=== PATIENT | female | born 1955 | race Caucasian/White ===

== ENCOUNTER 2020-05-07 17:15 | Outpatient (CLI) | payer OTHER, BC, SELFPAY ==
--- NOTE | ~2020-05-07 | XR_ITS ---
EXAMINATION: XR ankle RT min 3V, XR foot RT min 3V EXAM DATE: 05/07/2020 17:46 INDICATION: Initial encounter following injury, with pain of the right ankle, foot. TECHNIQUE: Right foot dorsoplantar, lateral and oblique projections obtained and reviewed. Right ank le frontal, lateral and oblique projections obtained and reviewed. There is no prior study for janice tran. FINDINGS: Right metatarsal bones unremarkable. The right ankle mortise appears intact. There are n o acute fractures or dislocations identified. There is no subcutaneous gas. The soft tissue is unre markable. There are no radiopaque foreign bodies. There is an old talar dorsal avulsion injury, gi jose g this appears well-corticated and rounded. IMPRESSION: No acute osseous findings. Reviewed, dictated and finalized at location B. IMPRESSION: No acute osseous findings. IMPRESSION: No acute osseous findings.
== END 2020-05-07 17:16 | disposition home or self-care (01) ==
PROVIDERS: PCP Family Medicine
DX: M25.571 Pain in right ankle and joints of right foot (principal); M25.471 Effusion, right ankle; W10.9XXA Fall (on) (from) unspecified stairs and steps, initial encounter
CPT/HCPCS: 73610; 73630

== ENCOUNTER 2021-07-19 10:38 | Emergency (ER) | payer OTHER, BC, SELFPAY ==
[2021-07-19 10:48] VITALS: BP 93/66; PULSE 86; RESP 16; TEMP 36.5; O2SAT 97
--- NOTE | 2021-07-19 11:18 | ED.EAR ---
HPI - Ear Problem General Chief complaint: Ear Stated complaint: ear pain Source: patient and RN notes reviewed Limitations: no limitations History of Present Illness HPI Narrative: The patient, a non-smoker/nondrinker on diabetic meds, presents with right ear discomfort. Patient states she has 1 to 2-day worsening of a least 2-week history of right ear discomfort that is mild, worse with some leaning position changes. This is associated with muffled hearing, bubbling in her ear; she has allergy triggers at home- with pets in bedroom [no smoker]. No fever, URI?sinusitis, vertigo, tooth ache [she's had wisdom tooth extraction ], lancinating/neuralgic pain, teeth grinding; no loss of taste/smell, CP, cough, S OB. Discussed possible causes [allergy, infection, dental/bruxism, etc.] -will treat broadly. She has been seen by ENT in the past for nasal sinus surgery; advised to see them in follow-up. Related Data Allergies Allergy/AdvReac Type Severity Reaction Status Date / Time No Known Allergies Allergy Unverified 01/04/21 15:26 Review of Systems Review of Systems: General/Constitutional: No weight loss,fever Eyes: N0: Redness,discharge Ears/Nose/Throat: No: Epistaxis,ear discharge Respiratory: Denies: Hemoptysis Gastrointestinal: No Vomiting, Bleeding-rectal Skin: No Lumps, eruption Neurologic: No Focal Weakness,Sz Hematologic: Denies: Petechiae/Purpura Psychiatric: No: Suicida ideationl All Other Systems: Reviewed and Negative [facility] Past Medical History Medical History Allergic asthma Asthma Hyperglycemia Family History Family History Father Cerebrovascular accident, Onset Age: 77 Mother Family history of congestive heart failure, Onset Age: 69 Hypertension Family history of cardiovascular disease, Onset Age: 70 Family history of arthritis Other Acute myocardial infarction Carcinoma of colon Diabetes mellitus Family history of alcoholism Family history of chronic obstructive pulmonary disease Family history of glaucoma Family history of seizure disorder Social History Social History Social History: Smoking status: Never smoker Second hand tobacco smoke exposure: No Alcohol intake: never Substance use: never Substance use type: does not use Gender identity (if verbalized by the patient): Female Sexual Orientation (if Verbalized by the Patient): Straight or Heterosexual Comments At time of signature, agree with nursing past medical, surgical, social and family history. There is no relevant family history pertinent to the presenting complaint Exam Narrative: General Appearance: Well appearing, Well nourished, No distress EYE: PERRLA , EOMI Ears: TMs benign, nontender external ear normal, Auditory canal normal Nose: Normal nose, Nares clear Mouth/Throat: Normal appearing, Normal lips, nontender TMJ Neck: Supple, No adenopathy Respiratory: Airway patent, No respiratory distress Skin: Warm, Dry Neurological: A&O x3, CN II-X intact Psychiatric: Normal mood, Normal affect Course Vital Signs Vital signs: Vital Signs Temperature 97.7 F 07/19/21 10:48 Pulse Rate 86 07/19/21 10:48 Respiratory Rate 16 07/19/21 10:48 Blood Pressure 93/66 L 07/19/21 10:48 Pulse Oximetry 97 07/19/21 10:48 Temperature 97.7 F 07/19/21 10:48 Pulse Rate 86 07/19/21 10:48 Respiratory Rate 16 07/19/21 10:48 Blood Pressure 93/66 L 07/19/21 10:48 Pulse Oximetry 97 07/19/21 10:48 Medical Decision Making Vital Signs Vital Signs: Vital Signs Temperature 97.7 F 07/19/21 10:48 Pulse Rate 86 07/19/21 10:48 Respiratory Rate 16 07/19/21 10:48 Blood Pressure 93/66 L 07/19/21 10:48 Pulse Oximetry 97 07/19/21 10:48 Temperature 97.7 F 07/19/21 10:48 Pul
== END 2021-07-19 11:31 | disposition home or self-care (01) ==
PROVIDERS: Emergency Provider Emergency Medicine; PCP Family Medicine
DX: H92.01 Otalgia, right ear (principal)
CPT/HCPCS: 99213; G0463

== ENCOUNTER 2021-08-30 10:04 | Emergency (ER) | payer OTHER, BC, SELFPAY ==
--- NOTE | 2021-08-30 10:09 | ED.BACK ---
HPI - Back Pain/Injury General Chief Complaint: Back Pain/Injury Stated Complaint: Back pain Time Seen by Provider: 08/30/21 10:18 Source: patient Mode of arrival: ambulatory Limitations: no limitations History of Present Illness HPI Narrative: 66-year-old female presented for complaint of left lower back strain, onset yesterday. She states she was in a glider chair when she went to stand she torqued it. States she was seen by her chiropractor this morning who recommended steroid injection and oral steroid course, recommending she come to the urgent care for these prescriptions. She has taken ibuprofen this morning 0530 and applied pain cream. Currently denies numbness, tingling, weakness or radiating pain to the lower extremities, denies loss of bowel or bladder function. Endorses pain is worse when lowering to sit or raising to stand. 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 Endorses history of sciatica, DM, asthma. Related Data Allergies Allergy/AdvReac Type Severity Reaction Status Date / Time No Known Allergies Allergy Verified 08/29/21 13:00 Review of Systems Review of Systems: CONSTITUTIONAL: Denies body aches, fever, chills, or sweats. EYES: Denies visual changes, redness, or discharge. ENT: Denies rhinorrhea, congestion, sore throat, or otalgia. CARDIOVASCULAR: Denies chest pain, palpitations, or edema. RESPIRATORY: Denies cough or dyspnea. GASTROINTESTINAL: Denies abdominal pain, nausea, vomiting, or diarrhea. GENITOURINARY: Denies dysuria or hematuria. SKIN: Denies rash, itching, or wounds. MUSCULOSKELETAL: Endorses back pain NEUROLOGIC: Denies headache, numbness, tingling, or weakness. PSYCH: Denies depression or anxiety. All systems reviewed & are unremarkable except as noted in HPI and below PMFSH Past Medical History Medical History Allergic asthma Asthma Hyperglycemia Family History Family History Father Cerebrovascular accident, Onset Age: 77 Mother Family history of congestive heart failure, Onset Age: 69 Hypertension Family history of cardiovascular disease, Onset Age: 70 Family history of arthritis Other Acute myocardial infarction Carcinoma of colon Diabetes mellitus Family history of alcoholism Family history of chronic obstructive pulmonary disease Family history of glaucoma Family history of seizure disorder Social History Social History Social History: Smoking status: Never smoker Second hand tobacco smoke exposure: No Alcohol intake: never Substance use: never Substance use type: does not use Gender identity (if verbalized by the patient): Female Sexual Orientation (if Verbalized by the Patient): Straight or Heterosexual Comments At time of signature, I have reviewed and agree with nursing past medical, surgical, social and family history unless otherwise noted. Please see nursing chart for further information. There is no relevant family history pertinent to the presenting complaint Exam Narrative: GENERAL: Well-appearing, well-nourished, and in no acute distress. HEAD: Normocephalic, atraumatic. EYES: EOMI. No redness or drainage. Conjunctivae normal. ENT: Mucous membranes pink and moist. No rhinorrhea. TMs normal bilaterally. Throat normal. Uvula midline. NECK: Normal AROM. Supple. No lymphadenopathy. CHEST: No respiratory distress. Clear to auscultation. HEART: Regular rate and rhythm. No murmur appreciated. Normal peripheral pulses. ABDOMEN: Soft, nontender, nondistended, normal active bowel sounds. MUSCULOSKELETAL: Left low back pain, tender with deep palpation to upper hip, No bony tenderness, Ambulating with steady gait EXTREMITIES: Normal range of motion. No edema. SKIN: Warm, dry, no rash. Capi
[2021-08-30 10:11] VITALS: BP 114/83; PULSE 82; RESP 16; TEMP 36.6; O2SAT 100
[2021-08-30] MEDS: methylPREDNISolone ACETATE 80 MG/ML VIAL IM (10:25)
== END 2021-08-30 10:35 | disposition home or self-care (01) ==
PROVIDERS: Emergency Provider Nurse Practitioner Family; PCP Family Medicine
DX: S39.012A Strain of muscle, fascia and tendon of lower back, initial encounter (principal); X50.9XXA Other and unspecified overexertion or strenuous movements or postures, initial encounter; J45.909 Unspecified asthma, uncomplicated
CPT/HCPCS: 96372; 99213; G0463; J1040

== ENCOUNTER 2021-10-10 07:55 | Outpatient (CLI) | payer OTHER, BC, SELFPAY | END 2021-10-10 07:56 | disposition home or self-care (01) | LOC: ANHAUDIO 07:57 | PROVIDERS: PCP Family Medicine; Visit Provider Otolaryngology | DX: H69.81 Other specified disorders of Eustachian tube, right ear (principal); H91.91 Unspecified hearing loss, right ear | CPT/HCPCS: 92552; 92556; 92567 ==

== ENCOUNTER → 2022-02-15 08:03 | Outpatient (CLI) | payer OTHER, BC, SELFPAY ==
--- NOTE | ~2022-02-15 | XR_ITS ---
EXAM: XR lumbar spine 2-3V, XR pelvis 1-2V DATE: 02/15/2022 08:39 HISTORY: Low back pain with left radicular pain . COMPARISON: 06/29/2018. FINDINGS: 4 nonrib-bearing lumbar-type vertebral bodies, likely secondary to bilateral sacralization of L5. Lumbar scoliosis. Exaggerated lumbar lordosis. Stable minimal concave superior and inferior e ndplate deformities as can be seen with osteoporosis. Decreased mineralization. Pelvic phleboliths. M ultilevel facet sclerosis and hypertrophy. Minimal 1 to 2 mm retrolisthesis of L4 on L5, unchanged. M ild degenerative changes in the SI joints, bilateral hips, and pubic symphysis. 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 Osteop orosis. Multilevel facet arthropathy. Reviewed, dictated and finalized at location K. IMPRESSION: Spinal level numbering anomaly, likely representing bilateral sacra lization of L5. Osteoporosis. Multilevel facet arthropathy.
== END ==
PROVIDERS: PCP Family Medicine
DX: M54.50 Low back pain, unspecified (principal); M54.16 Radiculopathy, lumbar region; M81.0 Age-related osteoporosis without current pathological fracture; M12.88 Other specific arthropathies, not elsewhere classified, other specified site
CPT/HCPCS: 72100; 72170

== ENCOUNTER 2022-03-01 15:42 | Emergency (ER) | payer OTHER, BC, SELFPAY ==
[2022-03-01 15:46] VITALS: BP 120/88; PULSE 102; RESP 16; TEMP 37.6; O2SAT 96
--- NOTE | 2022-03-01 15:55 | ED.URI ---
HPI - URI/Sore Throat General Chief Complaint: Upper Respiratory Infection Stated Complaint: ELEVATED HEART RATE/RUNNY NOSE/SORE THROAT/COUGH Source: patient and RN notes reviewed Mode of arrival: ambulatory Limitations: no limitations History of Present Illness HPI Narrative: 66-year-old female with history of diabetes and asthma presents with concern for headache, nasal congestion, low-grade temperature, cough, COVID exposure. Reports her symptoms started today when she woke up from a nap. Reports her was diagnosed with COVID today. She denies needing to use her albuterol inhaler or nebulizer any more frequently, reports she has not used in the last couple of months. She denies any [id number]-[id number] treatment for her symptoms MD elicited complaint: cough Related Data Home Medications Medication Instructions Recorded Confirmed dulaglutide 0.75 mg/0.5 mL 0.75 mg subcut WEEKLY 10/23/21 03/01/22 subcutaneous pen injector (Trulicity) Allergies Allergy/AdvReac Type Severity Reaction Status Date / Time No Known Allergies Allergy Verified 03/01/22 15:47 Review of Systems Review of Systems: CONSTITUTIONAL: Reports malaise, low-grade fever. EYES: Denies visual changes, redness, or discharge. ENT: Reports rhinorrhea, congestion. Denies sinus pain, otalgia and sore throat. CARDIOVASCULAR: Denies chest pain, palpitations, or edema. RESPIRATORY: Reports cough. Denies dyspnea. GASTROINTESTINAL: Denies abdominal pain, nausea, vomiting, diarrhea SKIN: Denies rash or itching. MUSCULOSKELETAL: Denies myalgia. NEUROLOGIC: Reports headache. All systems reviewed & are unremarkable except as noted in HPI and below PMFSH Past Medical History Medical History Allergic asthma Asthma Hyperglycemia Family History Family History Father Cerebrovascular accident, Onset Age: 77 Mother Family history of congestive heart failure, Onset Age: 69 Hypertension Family history of cardiovascular disease, Onset Age: 70 Family history of arthritis Other Acute myocardial infarction Carcinoma of colon Diabetes mellitus Family history of alcoholism Family history of chronic obstructive pulmonary disease Family history of glaucoma Family history of seizure disorder Social History Social History Social History: Smoking status: Never smoker Second hand tobacco smoke exposure: No Alcohol intake: never Substance use: never Substance use type: does not use Gender identity (if verbalized by the patient): Female Sexual Orientation (if Verbalized by the Patient): Straight or Heterosexual Comments At time of signature, agree with nursing past medical, surgical, social and family history. There is no relevant family history pertinent to the presenting complaint Exam Narrative: GENERAL: Nontoxic appearing and in no acute distress. HEAD: Normocephalic EYES: PERRLA, conjunctivae clear ENT: Nares clear, clear discharge. Mucous membranes moist. TM pearly taylor with dull light reflex bilaterally; no tragal tenderness. Oropharynx not erythematous without lesions. Tonsils not enlarged and without exudate, no drooling, no hoarseness, no trismus, uvula midline. NECK: Supple. No lymphadenopathy CHEST: Clear to auscultation, breath sounds equal. No wheezing, rhonchi, rales, or stridor. No respiratory distress, speaks in full sentences. Barking cough noted HEART: Regular rate and rhythm. No murmur heard. SKIN: Warm, dry, no rash. NEURO: Alert and oriented x3. PSYCH: Normal mood and affect Course Course Emergency Course: Patient expressed some interest in COVID anti-viral, advised her to follow-up with her PCP if her PCR is positive or to follow-up at if she can't reach her PCP Patient is aware of diagnosis, understands and
[2022-03-01 18:32] LABS: SARS-CoV-2 RNA PCR Positive
== END 2022-03-01 16:34 | disposition home or self-care (01) ==
PROVIDERS: Emergency Provider Nurse Practitioner; PCP Family Medicine
DX: U07.1 COVID-19 (principal); J45.909 Unspecified asthma, uncomplicated
CPT/HCPCS: 87426; 99213; C9803; G0463; U0003; U0005

== ENCOUNTER 2022-07-31 16:31 | Emergency (ER) | payer OTHER, BC, SELFPAY ==
--- NOTE | 2022-07-31 16:38 | ED.URI ---
HPI - URI/Sore Throat General Chief Complaint: Upper Respiratory Infection Stated Complaint: sore throat,sinus drainage Time Seen by Provider: 07/31/22 16:38 Source: patient, RN notes reviewed and old records reviewed Mode of arrival: ambulatory Limitations: no limitations History of Present Illness HPI Narrative: 67-year-old female presents to the [facility] with postnasal drainage and sore throat since Thursday, 2 days. Patient states that she was here due to concerns of exposure to RSV. Attempted to educate patient in regards that this is a virus and is not treated with an antibiotic. We do not test for RSV here. Offered patient flu, strep and COVID testing which patient declined. Patient is diabetic. States she took 3 steroid pills last night that Dr. Ca had prescribed door while ago. Related Data Home Medications Medication Instructions Recorded Confirmed dulaglutide 0.75 mg/0.5 mL 0.75 mg subcut WEEKLY 10/23/21 04/28/22 subcutaneous pen injector (Trulicity) risedronate 150 mg tablet mg PO 07/31/22 Allergies Allergy/AdvReac Type Severity Reaction Status Date / Time No Known Allergies Allergy Verified 07/31/22 16:41 Review of Systems Review of Systems: All systems reviewed & are unremarkable except as noted in HPI and below Constitutional: Constitutional: Reports no additional constitutional complaints Eyes: Eyes: Reports no additional eye complaints ENT: Reports as per HPI, Reports nasal congestion, Reports post nasal drip and Reports sore throat Cardiovascular: Cardiovascular: Reports no additional cardiovascular complaints, Denies chest pain and Denies dyspnea Respiratory: Respiratory: Reports no additional respiratory complaints, Denies chest congestion, Denies cough and Denies dyspnea Gastrointestinal: Gastrointestinal: Reports no additional gastrointestinal complaints, Denies abdominal pain, Denies nausea and Denies vomiting Musculoskeletal: Musculoskeletal: Reports no additional musculoskeletal complaints Integumentary/Breasts: Skin/Breast: Reports system reviewed and no additional complaints, except as docu Neurologic: Reports system reviewed and no additional complaints, except as documented Psychiatric: Psychiatric: Reports no additional psychiatric complaints Allergic/Immunologic: Allergic/Immunologic: Reports no additional allergic/immunologic complaints PMFSH Past Medical History Medical History Allergic asthma Asthma Hyperglycemia Family History Family History Father Cerebrovascular accident, Onset Age: 77 Mother Family history of congestive heart failure, Onset Age: 69 Hypertension Family history of cardiovascular disease, Onset Age: 70 Family history of arthritis Other Acute myocardial infarction Carcinoma of colon Diabetes mellitus Family history of alcoholism Family history of chronic obstructive pulmonary disease Family history of glaucoma Family history of seizure disorder Social History Social History Social History: Smoking status: Never smoker Second hand tobacco smoke exposure: No Alcohol intake: never Substance use: never Substance use type: does not use Gender identity (if verbalized by the patient): Female Sexual Orientation (if Verbalized by the Patient): Straight or Heterosexual Comments At the time of my signature, I reviewed and agree with the nursing past medical, surgical, social, and family history. There is no relevant family history pertinent to the patient complaint. Exam Const: General: cooperative, healthy appearing, comfortable, no acute distress, well developed, alert and well nourished Nutritional Appearance: well nourished Orientation/consciousness: patient oriented x3 Limitations: no limitations HENMT: Head: normal
[2022-07-31 16:46] VITALS: BP 137/91; PULSE 84; RESP 16; TEMP 37.1; O2SAT 98
== END 2022-07-31 17:00 | disposition home or self-care (01) ==
PROVIDERS: Emergency Provider Nurse Practitioner; PCP Family Medicine
DX: R09.82 Postnasal drip (principal); J06.9 Acute upper respiratory infection, unspecified; J45.909 Unspecified asthma, uncomplicated
CPT/HCPCS: 99211; G0463

== ENCOUNTER 2022-08-02 08:04 | Emergency (ER) | payer OTHER, BC, SELFPAY ==
[2022-08-02 08:21] VITALS: BP 143/88; PULSE 83; RESP 16; TEMP 37.1; O2SAT 96
--- NOTE | 2022-08-02 08:26 | ED.URI ---
HPI - URI/Sore Throat General Chief Complaint: Upper Respiratory Infection Stated Complaint: chest tightness Time Seen by Provider: 08/02/22 08:26 Source: patient and RN notes reviewed Mode of arrival: ambulatory Limitations: no limitations History of Present Illness HPI Narrative: 67-year-old female presented for complaint of sinus congestion, postnasal drainage cough over the last 4 days. Endorses cough is productive of yellow sputum. She was seen at this facility 2 days, requested an RSV test after exposure, which was not performed. She did not test for COVID or flu. She has been taking Mucinex for symptoms. She denies shortness of breath, wheezing, nausea, vomiting, diarrhea, fevers or chills. She endorses ?a propensity to turn into pneumonia? and when he: Initial testing today. She states she was exposed to flu yesterday. MD elicited complaint: cough Related Data Home Medications Medication Instructions Recorded Confirmed dulaglutide 0.75 mg/0.5 mL 0.75 mg subcut WEEKLY 10/23/21 08/02/22 subcutaneous pen injector (Trulicity) risedronate 150 mg tablet 150 mg PO MONTHLY 07/31/22 08/02/22 Allergies Allergy/AdvReac Type Severity Reaction Status Date / Time No Known Allergies Allergy Verified 08/02/22 08:19 Review of Systems Review of Systems: per [facility] Past Medical History Medical History Allergic asthma Asthma Hyperglycemia Family History Family History Father Cerebrovascular accident, Onset Age: 77 Mother Family history of congestive heart failure, Onset Age: 69 Hypertension Family history of cardiovascular disease, Onset Age: 70 Family history of arthritis Other Acute myocardial infarction Carcinoma of colon Diabetes mellitus Family history of alcoholism Family history of chronic obstructive pulmonary disease Family history of glaucoma Family history of seizure disorder Social History Social History Social History: Smoking status: Never smoker Second hand tobacco smoke exposure: No Alcohol intake: never Substance use: never Substance use type: does not use Gender identity (if verbalized by the patient): Female Sexual Orientation (if Verbalized by the Patient): Straight or Heterosexual Exam Narrative: GENERAL: Ill-appearing, nontoxic EYES: PERRLA, conjunctivae clear ENT: Mucous membranes moist. TMs pearly taylor with dull light reflex bilaterally; no tragal tenderness. Oropharynx without lesions or exudate, no drooling, no hoarseness, no trismus, uvula midline. NECK: Supple. No lymphadenopathy CHEST: Clear to auscultation, breath sounds equal. No wheezing, rhonchi, rales, or stridor. No respiratory distress, speaks in full sentences. HEART: Regular rate and rhythm. No murmur heard. SKIN: Warm, dry, no rash. NEURO: Alert and oriented x3. PSYCH: Normal mood and affect Course Course Emergency Course: Patient is aware of diagnosis, understands and agrees to treatment plan. Anticipatory guidance given. Patient agrees to follow-up as directed and is aware of reasons to seek care at the emergency department. Portions of this record may have been created with voice recognition software Level of Care: Express Care Visit Vital Signs Vital signs: Vital Signs Temperature 98.8 F 08/02/22 08:21 Pulse Rate 83 08/02/22 08:21 Respiratory Rate 16 08/02/22 08:21 Blood Pressure 143/88 H 08/02/22 08:21 Pulse Oximetry 96 08/02/22 08:21 Temperature 98.8 F 08/02/22 08:21 Pulse Rate 83 08/02/22 08:21 Respiratory Rate 16 08/02/22 08:21 Blood Pressure 143/88 H 08/02/22 08:21 Pulse Oximetry 96 08/02/22 08:21 reviewed MDM - URI/Sore Throat MDM Narrative Medical decision making narrative: covid and flu results reviewed with pt. Kyle
== END 2022-08-02 08:50 | disposition home or self-care (01) ==
PROVIDERS: Emergency Provider Nurse Practitioner Family; PCP Family Medicine
DX: J06.9 Acute upper respiratory infection, unspecified (principal); Z20.822 Contact with and (suspected) exposure to COVID-19; J45.909 Unspecified asthma, uncomplicated
CPT/HCPCS: 87426; 87804; 99213; C9803; G0463

== ENCOUNTER → 2023-06-13 07:18 | Outpatient (CLI) | payer MEDICARE, OTHER, BC, SELFPAY ==
--- NOTE | ~2023-06-13 | XR_ITS ---
EXAMINATION: XR shoulder RT min 2V DATE: 06/13/2023 09:32 INDICATION: Right shoulder pain. TECHNIQUE: 4 views of right shoulder were obtained. COMPARISON: None. FINDINGS: Bone alignment is normal. No fracture. There is mild osteoarthritis of glenohumeral joint a nd moderate osteoarthritis of acromioclavicular joint. IMPRESSION: 1. Polyarticular osteoarthritis. Reviewed, dictated and finalized at location A. [facility] [employer]
== END ==
PROVIDERS: PCP Chiropractor; Visit Provider Physician Assistant
DX: M19.011 Primary osteoarthritis, right shoulder (principal)
CPT/HCPCS: 73030

== ENCOUNTER 2023-06-16 08:24 | Emergency (ER) | payer MEDICARE, OTHER, BC, SELFPAY ==
--- NOTE | 2023-06-16 08:30 | ED.URI ---
HPI - URI/Sore Throat General Chief Complaint: Upper Respiratory Infection Stated Complaint: COVID EXPOSURE Time Seen by Provider: 06/16/23 08:58 Source: patient and RN notes reviewed Mode of arrival: ambulatory Limitations: no limitations History of Present Illness HPI Narrative: 68-year-old female presents with concern for COVID exposure. She reports she had a COVID booster on Thursday. She reports she had body aches and diarrhea over the weekend. She reports she was informed that she had a COVID exposure at work. SHe denies current symptoms. MD elicited complaint: other (COVID exposure) Related Data Home Medications Medication Instructions Recorded Confirmed risedronate 150 mg tablet 150 mg PO MONTHLY 07/31/22 06/16/23 dulaglutide 3 mg/0.5 mL 3 mg subcut WEEKLY 06/08/23 06/16/23 subcutaneous pen injector (Trulicity) empagliflozin 10 mg tablet 10 mg PO DAILY 06/16/23 06/16/23 (Jardiance) Allergies Allergy/AdvReac Type Severity Reaction Status Date / Time No Known Allergies Allergy Verified 06/08/23 15:53 Review of Systems Review of Systems: CONSTITUTIONAL: Denies malaise, chills, sweats, or fever. EYES: Denies visual changes, redness, or discharge. ENT: Denies rhinorrhea, congestion, sinus pain, otalgia and sore throat. CARDIOVASCULAR: Denies chest pain, palpitations, or edema. RESPIRATORY: Denies cough. Denies dyspnea. GASTROINTESTINAL: Denies abdominal pain, nausea, vomiting, diarrhea SKIN: Denies rash or itching. MUSCULOSKELETAL: Denies myalgia. NEUROLOGIC: Denies headache. All systems reviewed & are unremarkable except as noted in HPI and below PMFSH Past Medical History Medical History Acute sinusitis Allergic asthma AOM (acute otitis media) Asthma Asthma Close exposure to COVID-19 virus Hyperglycemia Sinusitis Family History Family History Father Cerebrovascular accident, Onset Age: 77 Mother Family history of congestive heart failure, Onset Age: 69 Hypertension Family history of cardiovascular disease, Onset Age: 70 Family history of arthritis Other Acute myocardial infarction Carcinoma of colon Diabetes mellitus Family history of alcoholism Family history of chronic obstructive pulmonary disease Family history of glaucoma Family history of seizure disorder Social History Social History Social History: Smoking status: Never smoker Second hand tobacco smoke exposure: No Alcohol intake: never Substance use: never Substance use type: does not use Lack of Transportation: No Lack of Food: Never True Current Housing: I Have Housing Concerned About Future Housing: No Difficulty Paying Gas/Electric Bills: No Difficulty Paying for Meds: No Currently Unemployed: No Education: Decline to Answer Difficulty w/ Childcare or Family Care: No Living arrangements: with family Occupation/Education: occupation Gender identity (if verbalized by the patient): Female Sexual Orientation (if Verbalized by the Patient): Straight or Heterosexual Comments At time of signature, agree with nursing past medical, surgical, social and family history. There is no relevant family history pertinent to the presenting complaint Exam Narrative: GENERAL: Well-appearing, well-nourished, and in no acute distress. HEAD: Normocephalic EYES: PERRLA, conjunctivae clear ENT: Nares clear. Mucous membranes moist. TM pearly taylor with sharp light reflex bilaterally; no tragal tenderness. Oropharynx not erythematous without lesions. Tonsils not enlarged and without exudate, no drooling, no hoarseness, no trismus, uvula midline. NECK: Supple. No lymphadenopathy CHEST: Clear to auscultation, breath sounds equal. No wheezing, rhonchi, rales, or stridor. No respiratory distress, spea
[2023-06-16 08:37] VITALS: BP 117/80; PULSE 79; RESP 16; TEMP 36.9; O2SAT 97
[2023-06-16 08:39] VITALS: BP 117/80; PULSE 79; RESP 16; TEMP 36.9; O2SAT 97
== END 2023-06-16 09:12 | disposition home or self-care (01) ==
PROVIDERS: Emergency Provider Nurse Practitioner; PCP Family Medicine
DX: Z20.822 Contact with and (suspected) exposure to COVID-19 (principal); J45.909 Unspecified asthma, uncomplicated
CPT/HCPCS: 87426; 99212; C9803; G0463

== ENCOUNTER 2023-06-16 13:00 | Outpatient (CLI) | payer MEDICARE, OTHER, BC, SELFPAY ==
--- NOTE | ~2023-06-16 | MM_ITS ---
EXAMINATION: MM screening yamil BI w [facility] HISTORY: Screening mammogram TECHNIQUE: Craniocaudal and mediolateral oblique 3-D tomosynthesis images were obtained and synthetic 2-D images were generated. CAD analysis was submitted and interpreted. COMPARISON: No prior mammogram is available for comparison at this institution. BREAST PARENCHYMAL COMPOSITION: There are scattered areas of fibroglandular density. FINDINGS: No suspicious mass, calcification, or architectural distortion are identified in either lexii ast to suggest malignancy. IMPRESSION: 1. No mammographic evidence of malignancy. 2. Recommend routine screening mammography in one year. BI-RADS Category 1: Negative Reviewed, dictated and finalized at location A. PURIFIER SERVICER
== END 2023-06-16 13:01 | disposition home or self-care (01) ==
LOC: CHSIMG 13:03
PROVIDERS: PCP Family Medicine; Visit Provider Physician Assistant
DX: Z12.31 Encounter for screening mammogram for malignant neoplasm of breast (principal)
CPT/HCPCS: 77063; 77067

== ENCOUNTER 2023-08-09 15:40 | Emergency (ER) | payer MEDICARE, OTHER, SELFPAY ==
--- NOTE | ~2023-08-09 | XR_ITS ---
EXAMINATION: XR chest 2V DATE: 08/09/2023 16:12 INDICATION: Fever and fatigue TECHNIQUE: PA and lateral views of the chest are obtained. COMPARISON: 05/29/2016 FINDINGS: There are minimal airspace opacities in the left lung base. No pleural effusion or pneumoth orax. The cardiomediastinal silhouette is normal. There is moderate thoracic spondylosis. IMPRESSION: 1. Minimal left basilar airspace opacity, likely pneumonia. Reviewed, dictated and finalized at location F. T PLANNING MANAGER
[2023-08-09 15:48] VITALS: BP 103/76; PULSE 86; RESP 16; TEMP 37.6; O2SAT 98
--- NOTE | 2023-08-09 16:39 | ED.GENADULT ---
HPI - General Adult General Chief complaint: Upper Respiratory Infection Stated complaint: SORE THROAT/HEADACHE/FEVER/BODY ACHES Source: patient Mode of arrival: ambulatory Limitations: no limitations History of Present Illness HPI narrative: Patient presents for evaluation of sick symptoms since yesterday. Symptoms include headache, generalized body aches, nonproductive cough, shortness of breath, fever and nausea. No chills, vomiting, diarrhea. One of her coworkers to whom she was recently exposed tested positive for COVID and another for influenza. She has a history of asthma and uses home neb treatments. She does not smoke. She states she has had pneumonia six times in the past. Related Data Home Medications Medication Instructions Recorded Confirmed risedronate 150 mg tablet 150 mg PO MONTHLY 07/31/22 08/09/23 dulaglutide 3 mg/0.5 mL 3 mg subcut WEEKLY 06/08/23 08/09/23 subcutaneous pen injector (Trulicity) empagliflozin 10 mg tablet 10 mg PO DAILY 06/16/23 08/09/23 (Jardiance) Allergies Allergy/AdvReac Type Severity Reaction Status Date / Time No Known Allergies Allergy Verified 08/09/23 15:56 Review of Systems Review of Systems: CONSTITUTIONAL: reports fever. Denies chills or sweats. EYES: Denies visual changes, redness, or discharge. ENT: Reports sinus congestion and postnasal drainage. Denies sore throat or otalgia CARDIOVASCULAR: Denies chest pain, palpitations, or edema. RESPIRATORY: Reports cough and SOB GASTROINTESTINAL: Reports nausea. Denies abdominal pain, vomiting, or diarrhea. GENITOURINARY: Denies dysuria or hematuria. SKIN: Denies rash or itching. MUSCULOSKELETAL: Reports generalized body aches NEUROLOGIC: Reports headache. Denies numbness, dizziness, or weakness. PSYCHIATRIC: Denies anxiety or depression. [facility] Past Medical History Medical History Acute sinusitis Allergic asthma AOM (acute otitis media) Asthma Asthma Close exposure to COVID-19 virus Diabetes Hyperglycemia Sinusitis Surgical History Surgical History No pertinent past surgical history Family History Family History Father Cerebrovascular accident, Onset Age: 77 Mother Family history of congestive heart failure, Onset Age: 69 Hypertension Family history of cardiovascular disease, Onset Age: 70 Family history of arthritis Other Acute myocardial infarction Carcinoma of colon Diabetes mellitus Family history of alcoholism Family history of chronic obstructive pulmonary disease Family history of glaucoma Family history of seizure disorder Social History Social History Social History: Smoking status: Never smoker Second hand tobacco smoke exposure: No Alcohol intake: never Substance use: never Substance use type: does not use Lack of Transportation: No Lack of Food: Never True Current Housing: I Have Housing Concerned About Future Housing: No Difficulty Paying Gas/Electric Bills: No Difficulty Paying for Meds: No Currently Unemployed: No Education: Decline to Answer Difficulty w/ Childcare or Family Care: No Living arrangements: with family Occupation/Education: occupation Gender identity (if verbalized by the patient): Female Sexual Orientation (if Verbalized by the Patient): Straight or Heterosexual Exam Narrative: GENERAL: Appears acutely ill but nontoxic. Well-nourished, and in no acute distress. HEAD: Normocephalic, atraumatic. EYES: PERRLA and EOMI. ENT: Nares clear, no rhinorrhea or epistaxis. Mucous membranes moist. Oropharynx without tonsillar hypertrophy exudate or other lesions. Bilateral TMs pearly taylor nonbulging NECK: Supple. No adenopathy or masses. No ca
== END 2023-08-09 16:25 | disposition home or self-care (01) ==
PROVIDERS: Emergency Provider Nurse Practitioner; PCP Family Medicine
DX: J18.9 Pneumonia, unspecified organism (principal); E11.9 Type 2 diabetes mellitus without complications; J45.909 Unspecified asthma, uncomplicated; Z79.899 Other long term (current) drug therapy; Z20.822 Contact with and (suspected) exposure to COVID-19
CPT/HCPCS: 71046; 87426; 87804; 99213; C9803; G0463

== ENCOUNTER 2023-08-20 08:14 | Emergency (ER) | payer MEDICARE, OTHER, SELFPAY ==
[2023-08-20] VITALS (27 sets, daily range): BP systolic 126–149; BP diastolic 79–91; PULSE 66–92; RESP 12–31; TEMP 36.9; O2SAT 93–99
[2023-08-20 09:48] LABS: Basophils Absolute Auto 0.1 K/mm3 (0.0-0.1); Basophils Percent Auto 0.7 % (0.2-1.2); Eosinophils Absolute Auto 0.1 K/mm3 (0-0.3); Eosinophils Percent Auto 0.8 % (0-4.4); Hematocrit 50.4 % (37.0-47.0); Hemoglobin 16.1 g/dL (12.0-15.0); Immature Granulocyte Absolute 0.08 K/mm3 (0.00-0.031); Immature Granulocyte Percent A 0.6 % (0-0.5); Lymphocytes Absolute Auto 3.99 K/mm3 (0.9-3.2); Lymphocytes Percent Auto 30.5 % (18.3-44.2); Mean Corpuscular HGB Conc 31.9 g/dl (32-36); Mean Corpuscular Hemoglobin 29.4 pg (26-34); Mean Corpuscular Volume 92.1 fl (80-100); Mean Platelet Volume 9.9 fl (7.4-10.4); Monocytes Percent Auto 7.8 % (2.6-8.5); Neutrophils Absolute Auto 7.8 K/mm3 (1.3-6.7); Neutrophils Percent Auto 59.6 % (45.5-73.1); Platelet Count Result 244 k/mm3 (150-375); Red Blood Count 5.47 M/mm3 (4.2-5.4); Red Cell Distribution Width 12.9 % (11.5-14.5); White Blood Count 13.1 K/mm3 (4.5-10.0)
[2023-08-20 09:57] LABS: Alanine Aminotransferase 94 U/L (6-35); Albumin Level 4.2 g/dL (3.5-5.1); Alkaline Phosphatase 69 U/L (38-126); Anion Gap 7 mmol/L (8-16); Aspartate Amino Transferase 48 U/L (14-36); Bilirubin,Total 0.6 mg/dL (0.2-1.3); Blood Urea Nitrogen 11 mg/dL (7-17); Carbon Dioxide 33 mmol/L (22-30); Chloride 102 mmol/L (98-107); Estimated CRCL calculation 55 ml/min; Estimated Glomerular Filt Rate > 60; Glucose 114 mg/dL (65-110); Potassium 3.6 mmol/L (3.4-5.0); Sodium 142 mmol/L (137-145)
[2023-08-20 10:00] LABS: INR 0.9
[2023-08-20 10:01] LABS: Partial Thromboplastin Time 27.6 SECONDS (22.3-36.8)
--- NOTE | 2023-08-20 10:51 | ED.GENADULT ---
HPI - General Adult General Chief complaint: GI Bleed Stated complaint: rectal bleeding Time Seen by Provider: 08/20/23 10:07 History of Present Illness HPI narrative: Patient is a 68-year-old female who presents to the emergency department this morning complaining of passing blood clots this. Patient states that she went to the bathroom to have a bowel movement and noticed that she was passing some blood clots. Patient states that she did not notice any blood when she wiped and that the clots were passed with her stool. Patient has had a colonoscopy approximately 5 years ago which was and it was performed here. Patient admits that she has been on steroids since the 09 of August and is still taking them tapering down as part of her treatment for pneumonia and is concerned maybe the steroids have given her a GI ulcer causing her bleeding. Patient is currently denying any additional symptoms including any chest pain, shortness of breath, nausea, vomiting, abdominal pain, dysuria, hematuria, constipation, diarrhea, melena, fevers or chills. Patient also denies any headaches, dizziness, lightheadedness, blurry visions, focal weakness, numbness and or tingling. There are no other modifying, alleviating, or precipitating factors at this time. Related Data Home Medications Medication Instructions Recorded Confirmed risedronate 150 mg tablet 150 mg PO MONTHLY 07/31/22 08/13/23 dulaglutide 3 mg/0.5 mL 3 mg subcut WEEKLY 06/08/23 08/13/23 subcutaneous pen injector (Trulicity) empagliflozin 10 mg tablet 10 mg PO DAILY 06/16/23 08/13/23 (Jardiance) Allergies Allergy/AdvReac Type Severity Reaction Status Date / Time metformin AdvReac Intermediate Diarrhea Verified 08/20/23 09:30 [facility] Past Medical History Medical History Acute sinusitis Allergic asthma AOM (acute otitis media) Asthma Asthma Close exposure to COVID-19 virus Diabetes Hyperglycemia Sinusitis Surgical History Surgical History No pertinent past surgical history Family History Family History Father Cerebrovascular accident, Onset Age: 77 Mother Family history of congestive heart failure, Onset Age: 69 Hypertension Family history of cardiovascular disease, Onset Age: 70 Family history of arthritis Other Acute myocardial infarction Carcinoma of colon Diabetes mellitus Family history of alcoholism Family history of chronic obstructive pulmonary disease Family history of glaucoma Family history of seizure disorder Social History Social History (Updated 08/13/23 @ 07:44 by Tana Arechiga) Social History: Smoking status: Never smoker Second hand tobacco smoke exposure: No Alcohol intake: never Substance use: never Substance use type: does not use Do You Feel Safe in your Home?: Yes Lack of Transportation: No Lack of Food: Never True Current Housing: I Have Housing Concerned About Future Housing: No Difficulty Paying Gas/Electric Bills: No Difficulty Paying for Meds: No Currently Unemployed: No Education: Don't Know Difficulty w/ Childcare or Family Care: No Living arrangements: with family Occupation/Education: occupation Additional occupation/education comments: [employer] Gender identity (if verbalized by the patient): Female Sexual Orientation (if Verbalized by the Patient): Straight or Heterosexual Exam Narrative: General: Alert, awake, afebrile, in no acute distress. HEENT: PERRL, no rhinorrhea, no post nasal drip, oropharynx clear. Neck: Trachea midline, no JVD, no lymphadenopathy. Cardiovascular: Regular rate and rhythm, no murmurs, rubs or gallops, no peripheral edema. Respiratory: Clear to auscultation bilaterally, no tachypnea, no wheezing, no rhonchi, no rubs, no respiratory distress. Abdomen
== END 2023-08-20 12:20 | disposition home or self-care (01) ==
LOC: ANHED 11:08
PROVIDERS: Emergency Provider Emergency Medicine; PCP Family Medicine
DX: K62.5 Hemorrhage of anus and rectum (principal); D72.829 Elevated white blood cell count, unspecified; J45.909 Unspecified asthma, uncomplicated; E11.9 Type 2 diabetes mellitus without complications; Z79.85 Long-term (current) use of injectable non-insulin antidiabetic drugs; Z79.84 Long term (current) use of oral hypoglycemic drugs
CPT/HCPCS: 36415; 80053; 85025; 85610; 85730; 86850; 86900; 86901; 99283

== ENCOUNTER 2023-09-10 08:46 | Day surgery (SDC) | payer MEDICARE, OTHER, SELFPAY ==
[2023-08-27 11:18] VITALS: BMI 27.8
--- NOTE | 2023-09-09 11:30 | WPDANESEPPF ---
Anes - Initial Pre Proc Eval Procedure: Operation Date: 09/10/23 10:30 Proposed Procedures p Colonoscopy - Mainor Kingsley MD Date/Time: 09/09/23 11:30 Surgeon: Mainor Kingsley MD Pre Op Diagnosis: Hemorrhage of anus and rectum Patient Data Age: 68 Gender: F Height: 1.57 m Weight: 67.15 kg Allergies Allergy/AdvReac Type Severity Reaction Status Date / Time metformin AdvReac Intermediate Diarrhea Verified 09/10/23 09:27 Home Medications Medication Instructions Recorded Confirmed Type flash glucose sensor (FreeStyle #6 ea 09/14/20 09/10/23 Rx Rosa 2 Sensor kit) flash glucose scanning reader #1 ea 12/03/20 09/10/23 Rx (FreeStyle Rosa 2 [place]) nebulizers (Aeroneb Go Nebulizer) #1 ea 03/14/22 09/10/23 Rx albuterol sulfate 90 mcg/actuation See Rx Instructions .Route 05/08/22 09/10/23 Rx aerosol inhaler .COMPLEX #6.7 grams budesonide-formoterol HFA 160 See Rx Instructions .Route 01/05/23 09/10/23 Rx mcg-4.5 mcg/actuation aerosol .COMPLEX #10.2 grams inhaler (Symbicort) dulaglutide 3 mg/0.5 mL 3 mg subcut WEEKLY 06/08/23 09/10/23 History subcutaneous pen injector (Trulicity) empagliflozin 10 mg tablet 10 mg PO DAILY 06/16/23 09/10/23 History (Jardiance) fluticasone propionate 50 See Rx Instructions .Route 07/16/23 09/10/23 Rx mcg/actuation nasal .COMPLEX #16 grams spray,suspension montelukast 10 mg tablet See Rx Instructions .Route 07/20/23 09/10/23 Rx .COMPLEX #100 tabs albuterol sulfate 2.5 mg/3 mL 2.5 mg (3 mL) inhalation Q6H #90 mL 08/09/23 09/10/23 Rx (0.083 %) solution for nebulization ipratropium bromide 0.02 % 2.5 ml inhalation Q6H PRN 08/13/23 09/10/23 Rx solution for inhalation shortness of breath or wheezing #75 mL sodium,potassium,mag sulfates 17.5 See Rx Instructions PO .COMPLEX 08/27/23 09/10/23 Rx gram-3.13 gram-1.6 gram oral soln #354 mL (Suprep Bowel Prep Kit) Vitamin D3 1 tab-cap PO DIRECTED 08/28/23 09/10/23 History Patient hx anesthesia problems: none Family hx anesthesia problems: none Results Review: All pre-operative results and documents have been reviewed as part of the pre-operative evaluation. [facility] Past Medical History Medical History Acute sinusitis Allergic asthma AOM (acute otitis media) Asthma Asthma Bright red blood per rectum Close exposure to COVID-19 virus Diabetes Hyperglycemia Sinusitis Surgical History Surgical History No pertinent past surgical history Family History Family History Father Cerebrovascular accident, Onset Age: 77 Mother Family history of congestive heart failure, Onset Age: 69 Hypertension Family history of cardiovascular disease, Onset Age: 70 Family history of arthritis Other Acute myocardial infarction Carcinoma of colon Diabetes mellitus Family history of alcoholism Family history of chronic obstructive pulmonary disease Family history of glaucoma Family history of seizure disorder Social History Social History Social History: Smoking status: Never smoker Second hand tobacco smoke exposure: No Alcohol intake: never Substance use: never Substance use type: does not use Do You Feel Safe in your Home?: Yes Lack of Transportation: No Lack of Food: Never True Current Housing: I Have Housing Concerned About Future Housing: No Difficulty Paying Gas/Electric Bills: No Difficulty Paying for Meds: No Currently Unemployed: No Education: Don't Know Difficulty w/ Childcare or Family Care: No Living arrangements: with family Occupation/Education: occupation 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
[2023-09-10 09:32] VITALS: BP 121/100; PULSE 85; RESP 20; TEMP 36.2; O2SAT 97
--- NOTE | 2023-09-10 09:37 | WPDHPUPDATE1 ---
History and Physical Update Update Date/Time: 09/10/23 09:37 History and Physical has been reviewed, including an updated exam of the patient. There are NO changes in the patient's condition. Risks, benefits, and alternatives have been discussed and questions answered. Patient agrees to proceed with procedure.
[2023-09-10 09:57] LABS: Glucose Point of Care 83 mg/dl (65-105)
[2023-09-10] MEDS: LACTATED RINGERS 1,000 ML 150 ML IV CONT (09:57)
[2023-09-10] MEDS: DEXTROSE 50% 25 GM/50 ML SYRINGE IV PUSH (10:20)
[2023-09-10 10:56] VITALS: BP 116/70; PULSE 96; RESP 16; O2SAT 98
[2023-09-10 11:06] VITALS: BP 126/92; PULSE 99; RESP 16; O2SAT 95
--- NOTE | 2023-09-10 11:11 | SUR.PHASEII ---
1104 Pt's blood sugar in recovery 99 on Pt's Rosa [address] Conti aware of Pt's post-procedure blood sugar.
--- NOTE | 2023-09-10 11:15 | WPDANESPN ---
Anes - Prog Note Post-Op Date/Time: 09/10/23 11:15 Cardiovascular status: normal Respiratory status: normal Airway patency: baseline Mental status: baseline Post-Op hydration status: normal Vital Signs: Last Vital Signs Temp 36.2 C L 09/10/23 09:32 Pulse 99 09/10/23 11:06 Resp 16 09/10/23 11:06 BP 126/92 H 09/10/23 11:06 Pulse Ox 95 09/10/23 11:06 O2 Del Method Room Air 09/10/23 11:06 Pain Score (VAS): 0 I/O: Intake & Output 09/09/23 09/10/23 09/10/23 23:59 07:59 15:59 Intake Total 800 Balance 800 09/10/23 09:53 POC Capillary Glucose 83 Patient Feedback: Patient satisfied with anesthetic care.
[2023-09-10 11:16] VITALS: BP 118/64; PULSE 90; RESP 18; O2SAT 97
== END 2023-09-10 11:30 | disposition home or self-care (01) ==
PROVIDERS: PCP Family Medicine; Visit Provider Internal Medicine Gastroenterology
PROC: 0DJD8ZZ Inspection of Lower Intestinal Tract, Via Natural or Artificial Opening Endoscopic (ICD-10-PCS; CPT 45378; principal; 2023-09-10 10:30)
DX: K62.5 Hemorrhage of anus and rectum (principal); K57.30 Diverticulosis of large intestine without perforation or abscess without bleeding; K64.8 Other hemorrhoids
CPT/HCPCS: 45378

== ENCOUNTER 2023-11-20 12:50 | Outpatient (CLI) | payer MEDICARE, OTHER, SELFPAY ==
--- NOTE | ~2023-11-20 | MR_ITS ---
EXAMINATION: MR shoulder RT wo con DATE: 11/20/2023 13:23 INDICATION: Impingement syndrome of the right shoulder TECHNIQUE: Magnetic resonance imaging (MRI) of the right shoulder was performed without intravenous c ontrast. Sequences included axial PD-weighted FS FSE, coronal oblique PD-weighted FS FSE, coronal obl ique T2-weighted FS FSE, sagittal PD-weighted FS FSE, and sagittal T1-weighted SE. COMPARISON: None. FINDINGS: Coracoacromial arch: The acromion undersurface is flat in morphology (type I) with lateral downsloping. The coracoacromial ligament is normal. Mild acromioclavicular osteoarthritis. Rotator cuff: Moderate supraspinatus and infraspinatus tendinopathy without tear. The teres minor tendon is normal. Mild subscapularis tendinopathy without tear. Normal rotator cuff muscle bulk and signal. Biceps tendon, glenoid labrum and glenohumeral cartilage: Long head of the biceps tendon is normal. Glenoid labrum is normal. Glenohumeral cartilage is normal. Fluid: Physiologic amount of fluid in the glenohumeral joint and biceps tendon sheath. No loose osteochondr al bodies. Mild increased fluid signal in the subacromial/subdeltoid bursa consistent with mild bursi tis. Bones: Normal marrow signal with no edema, fracture or abnormal marrow replacing process. Mild cystic change at the lung superior facet of the greater tuberosity likely related to chronic supraspinatus tendon disease. IMPRESSION: 1. Moderate supraspinatus and infraspinatus tendinopathy and mild subscapularis tendinopathy without discrete tear. 2. Mild subacromial/subdeltoid bursitis. Reviewed, dictated and finalized at location A.
== END 2023-11-20 12:51 ==
LOC: MICIMG 12:54
PROVIDERS: PCP Family Medicine; Visit Provider Orthopaedic Surgery
DX: M75.41 Impingement syndrome of right shoulder (principal); M67.813 Other specified disorders of tendon, right shoulder; M75.51 Bursitis of right shoulder
CPT/HCPCS: 73221

== ENCOUNTER 2024-10-07 17:08 | Emergency (ER) | payer MEDICARE, OTHER, SELFPAY ==
[2024-10-07 17:18] VITALS: BP 141/88; PULSE 78; RESP 16; TEMP 37; O2SAT 97
--- NOTE | 2024-10-07 17:18 | ED.URI ---
HPI - URI/Sore Throat General Chief Complaint: Upper Respiratory Infection Stated Complaint: Earache, Sore Throat, Tight Chest Time Seen by Provider: 10/07/24 17:18 Source: patient Mode of arrival: ambulatory Limitations: no limitations History of Present Illness HPI Narrative: 69-year-old female history of diabetes presented for complaint of left ear pain and tightness in the back. Onset 0300. States she has concern for pneumonia again. She denies cough, shortness of breath, wheezing nausea vomiting, fevers or body aches. Says she was exposed to flu. Took ibuprofen this morning. Takes Claritin and Flonase. Related Data Home Medications ?Medication ?Instructions ?Recorded ?Confirmed ?Last Taken ?Type Vitamin D3 1 tab-cap PO DIRECTED 08/28/23 10/07/24 08/28/23 History tirzepatide 10 mg/0.5 mL 10 mg subcut WEEKLY 05/27/24 10/07/24 Unknown History subcutaneous pen injector (Mounjaro) Vitamin B-12 10/07/24 Unknown History Allergies Allergy/AdvReac Type Severity Reaction Status Date / Time metformin AdvReac Intermediate Diarrhea Verified 10/07/24 17:15 Review of Systems Review of Systems: per HPI All systems reviewed & are unremarkable except as noted in HPI and below PMFSH Past Medical History Medical History Bright red blood per rectum Diabetes Sinusitis AOM (acute otitis media) Asthma Close exposure to COVID-19 virus Hyperglycemia Allergic asthma Asthma Acute sinusitis Surgical History Surgical History No pertinent past surgical history Family History Family History Father Cerebrovascular accident, Onset Age: 77 Mother Family history of congestive heart failure, Onset Age: 69 Hypertension Family history of cardiovascular disease, Onset Age: 70 Family history of arthritis Other Acute myocardial infarction Carcinoma of colon Diabetes mellitus Family history of alcoholism Family history of chronic obstructive pulmonary disease Family history of glaucoma Family history of seizure disorder Social History Social History Social History: Smoking status: Never smoker Second hand tobacco smoke exposure: No Alcohol intake: never Substance use: never Substance use type: does not use Do You Feel Safe in your Home?: Yes Lack of Transportation: No Lack of Food: Never True Current Housing: I Have Housing Concerned About Future Housing: No Difficulty Paying Gas/Electric Bills: No Difficulty Paying for Meds: No Currently Unemployed: No Education: Don't Know Difficulty w/ Childcare or Family Care: No Living arrangements: with family Occupation/Education: occupation 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 Please see nursing chart for further information. There is no relevant family history pertinent to the presenting complaint Exam Narrative: GENERAL: Well-appearing EYES: EOMI. No redness or drainage. Conjunctivae normal. ENT: Mucous membranes pink and moist. No rhinorrhea. TMs normal bilaterally. Throat normal. Uvula midline. NECK: Normal AROM. CHEST: No respiratory distress. Clear to auscultation. HEART: Regular rate and rhythm. No murmur appreciated. Normal peripheral pulses. SKIN: Warm, dry, no rash. Capillary refill normal. Normal skin turgor. NEURO: No focal deficits. Alert and oriented x3. Gait steady. PSYCH: Normal affect. Course Course Emergency Course: Patient is aware of diagnosis, understands and agrees to treatment plan. Anticipatory guidance given. Patient agrees to follow-up as directed and is aware of reasons to seek care at the emergency department. Portions of this record may have been created with voice recognition software Level of Care: Express Care Visit Vital Signs Vital signs: Vital Signs Temperature 98.6 F 10/07/24 17:18 Pulse Rate 78 10/07/24 17:18 Respiratory Rate 16 10/07/24 17:18 Blood Pressure 141/88 H 10/07/24 17:18 Pulse Oximetry 97 10/07/24 17:18 Temperature 98.6 F 10/07/24 17:18 Pulse Rate 78 10/07/24 17:18 Respiratory Rate 16 10/07/24 17:18 Blood Pressure 141/88 H 10/07/24 17:18 Pulse Oximetry 97 10/07/24 17:18 MDM - URI/Sore Throat MDM Narrative Medical decision making narrative: Negative flu and COVID Discussed physical exam findings. Will refill her albuterol inhaler. Pt requesting steroids. Advised to monitor symptoms and supportive measures as symptom onset was 14 hours. Reviewed signs/symptoms to go to the ER. Pt is appropriate for outpt treatment and f/u. Pt's BS 58 on arrival, she drank juice and ate chocolate she brought BS 79. Differential Diagnosis Differential diagnosis: Likely upper respiratory infection, otitis media, sinusitis, viral infection, bronchitis, influenza and pharyngitis Lab Data Labs: Lab Results 10/07/24 Range/Units 17:52 POC Influenza A Ag Negative (Negative) POC Influenza B Ag Negative (Negative) POC SARS CoV-2 Ag Negative (Negative) Discharge Plan Discharge Clinical Impression: Otalgia Patient Disposition: Home, Self-Care Condition: Stable Instructions: Antibiotic Form, Earache (ED) Additional Instructions: Continue Flonase spray and antihistamine over the counter Cough syrup may cause drowsiness; avoid driving or take it at night time. Tylenol 1000mg every 8 hours as needed for pain Symptomatic treatment includes: rest, fluids, and increase humidity of the air at home. Follow up with your primary care provider in 1 week. Go to the ER for worsening symptoms or concerns. Patient Language: Finnish Prescriptions: New albuterol sulfate 90 mcg/actuation HFA aerosol inhaler 2 inh inhalation QID PRN (Reason: shortness of breath or wheezing) Qty: 8.5 0RF No Action albuterol sulfate 2.5 mg /3 mL (0.083 %) solution for nebulization 2.5 mg inhalation Q6H Qty: 90 0RF Vitamin B-12 (DME) FreeStyle Rosa 2 Sensor Kit See Rx Instructions .ROUTE .MEDSUPPLY Qty: 6 2RF Rx Instructions: As directed (DME) Aeroneb Go Nebulizer Misc See Rx Instructions .Route Qty: 1 0RF Rx Instructions: As directed ipratropium bromide 0.02 % solution 2.5 ml inhalation Q6H PRN (Reason: shortness of breath or wheezing) Qty: 75 0RF Mounjaro 10 mg/0.5 mL pen injector 10 mg subcut WEEKLY Rx Instructions: as per endo nystatin 100,000 unit/gram cream 1 applic topical BID Qty: 30 3RF triamcinolone acetonide 0.1 % cream 1 applic topical BID Qty: 80 0RF (DME) FreeStyle Rosa 2 [facility] [place] Rx Instructions .ROUTE .MEDSUPPLY Qty: 1 0RF Rx Instructions: As directed to check glucose TID albuterol sulfate 90 mcg/actuation HFA aerosol inhaler See Rx Instructions .ROUTE .COMPLEX Qty: 6.7 0RF Dose Instruction: INHALE 1 PUFF BY MOUTH EVERY 4 HOURS NEEDED FOR SHORTNESS OF BREATH OR WHEEZING Rx Instructions: INHALE 1 PUFF BY MOUTH EVERY 4 HOURS NEEDED FOR SHORTNESS OF BREATH OR WHEEZING montelukast 10 mg tablet See Rx Instructions .ROUTE .COMPLEX Qty: 100 0RF Dose Instruction: TAKE 1 TABLET BY MOUTH DAILY Rx Instructions: TAKE 1 TABLET BY MOUTH DAILY fluticasone propionate 50 mcg/actuation spray,suspension See Rx Instructions .ROUTE .COMPLEX Qty: 16 0RF Dose Instruction: SHAKE LIQUID AND USE 1 SPRAY IN EACH NOSTRIL DAILY NEEDED FOR ALLERGY SYMPTOMS Rx Instructions: SHAKE LIQUID AND USE 1 SPRAY IN EACH NOSTRIL DAILY NEEDED FOR ALLERGY SYMPTOMS Vitamin D3 1 tab-cap PO DIRECTED Follow-up/Referrals: Anshu Hummel MD [Primary Care Provider] -
[2024-10-07 17:54] LABS: EDCOVIDSCREEN Negative (Negative); EDINFLUASCREEN Negative (Negative); EDINFLUBSCREEN Negative (Negative)
== END 2024-10-07 17:54 | disposition home or self-care (01) ==
PROVIDERS: Emergency Provider Nurse Practitioner Family; PCP Family Medicine
DX: H92.02 Otalgia, left ear (principal); E11.9 Type 2 diabetes mellitus without complications; Z20.822 Contact with and (suspected) exposure to COVID-19
CPT/HCPCS: 87426; 87804; 99213; G0463

== ENCOUNTER 2024-10-13 02:23 | Outpatient (CLI) | payer MEDICARE, OTHER, SELFPAY ==
--- NOTE | ~2024-10-13 | XR_ITS ---
[id number] Ordering provider: Reanna Mobley PA-C History: . R07.89 - Other chest pain . Comparison: None. FINDINGS: VERTEBRAL BODIES: Normal height and alignment. No visible fracture or subluxation. The dens is intact . DISK SPACES: Well maintained. Multilevel facet joint disease. Multilevel uncovertebral joint osteoart hritic changes. PARASPINOUS SOFT TISSUES: No prevertebral soft tissue swelling. IMPRESSION: No acute osseous abnormality cervical spine. Reviewed, dictated and finalized at location A.
--- NOTE | ~2024-10-13 | XR_ITS ---
EXAMINATION: XR chest 2V DATE: 10/14/2024 12:37 INDICATION: Other chest pain. TECHNIQUE: Frontal and lateral views of the chest were obtained. COMPARISON: Chest 2 views 08/09/2023 FINDINGS: There is no pneumonia, pleural effusion, or pneumothorax. The heart size is normal. IMPRESSION: 1. No acute cardiopulmonary disease. Reviewed, dictated and finalized at location L.
--- NOTE | ~2024-10-13 | CT_ITS ---
Non-contrast Head CT History: Headache Technique: Axial non-contrast imaging of the brain was performed. Dose reduction technique was used on this scan by utilizing automated exposure control and iterative reconstruction technique. The dose -length product (DLP) was 605.33 mGy-cm. Findings: There is no evidence of intracranial hemorrhage, mass lesion, or acute infarct. Brain par enchyma appears normal. The ventricles and subarachnoid spaces are normal in size. The calvarium ap pears normal. The visualized paranasal sinuses and mastoid air cells are clear. Impression: No significant abnormality seen. Reviewed, dictated and finalized at location . Impression: No significant abnormality seen.
--- OUTSIDE RECORDS SUMMARY | 2024-10-13 02:25 | XMS_ITS | Clinical Summary ---
Author Organization [facility] Address [address] [place] [address] Phone Care Team Providers Care Burlap Worker Name Role Phone Lanny Alonzo MD Primary Care Provider +1- [phone] Allergies Active Allergy Reactions Criticality Noted Date Comments Metformin Diarrhea Medium 04/18/2021 Medications montelukast sodium (SINGULAIR ORAL) Take by mouth. Activ e calcium-cholec alciferol, D3, (CALTRATE 600+D3) 600 mg-20 mcg (800 unit) Tablet, Chewable tablet Take 1 Tablet by mouth 2 times daily with meals. 2 Active cholecalcifero l, Vitamin D3, 50 mcg (2,000 unit) Tablet Take 1 Tablet (2,000 Units) by mouth daily. 3 Active fluticasone propionate (FLONASE) 50 mcg/spray Wayne, Suspension nasal inhaler SHAKE LIQUID AND USE 1 SPRAY IN EACH NOSTRIL DAILY NEEDED FOR ALLERGY SYMPTOMS 4 Active FreeStyle Rosa 3 Sensor Device TEST BLOOD GLUCOSE DIRECTED. CHANGE EVERY 2 WEEKS 6 Each 3 4 Active Mounjaro 5 mg/0.5 mL Pen Injector Inject 0.5 mL (5 mg) by subcutaneous injection every 7 days. 2 mL 5 5 Active Mounjaro 5 mg/0.5 mL Pen Injector INJECT 5MG UNDER THE SKIN EVERY 7 DAYS 2 mL 2 5 025 Discontin ued(Reord er) Active Problems Problem Noted Date Diagnosed Date Vitamin D deficiency 07/08/2022 Age-related osteoporosis wit hout current pathological fracture 10/17/2021 Uncontrolled type 2 diabetes mellitus with hyper glycemia 04/18/2021 Overweight (BMI 25.0-29.9) 04/18/2021 Resolved Problems Problem Noted Date Diagnosed Date Resolved Date Type 2 diabetes mellitus wit h hypoglycemia without coma, without long-term current use of insulin 03/10/2024 03/10/2024 Encounters Date Type Department Care Team Description 10/08/2024 External Device Data STL ABSTRACTION Provider, Abstract 10/07/2024 External Device Data STL ABSTRACTION Provider, Abstract 10/05/2024 Results Follow-Up [facility] Endocrinology [address] [place] [address] Vikram Christopher MD HEMOGLOBIN A1C, ALT, VITAMIN B12 LEVEL 10/04/2024 9:45 AM VP [employer] Office Visit [facility] Endocrinology [address] [place] [address] Vikram Christopher MD Type 2 diabetes mellitus without complication, without long-term current use of insulin ([facility]) (Primary Dx); Age-related osteoporosis without current pathological fracture; Vitamin D deficiency; Elevated ALT measurement 10/04/2024 External Device Data STL ABSTRACTION Provider, Abstract 10/04/2024 Orders Only Initial Department [address] [place] [address] Dr KONG: [place] [address] Provider, Historical 09/21/2024 External Device Data ST[facility] ABSTRACTION Provider, Abstract 08/31/2024 External Device Data ST[facility] ABSTRACTION Provider, Abstract 08/25/2024 External Device Data STL ABSTRACTION Provider, Abstract 08/25/2024 Refill [facility] Endocrinology [address] [place] [address] Vikram Christopher MD 08/24/2024 Refill [facility] Endocrinology [address] [place] [address] Vikram Christopher MD 08/16/2024 External Device Data STL ABSTRACTION Provider, Abstract from Last 3 Months Social History Tobacco Use Types Packs/Day Years Used Date Smoking Tobacco: Never Smokeless Tobacco: Never Tobacco Cessation:Counseling Given: Not Answered Comments Unknown Sex and Gender Information Value Date Recorded Sex Assigned at Not on file Legal Sex Female 2:43 PM CDT Gender Identity Not on file Sexual Orientation Not on file Last Filed Vital Signs Vital Sign Reading Time Taken Comments Blood Pressure 125/83 10/04/2024 10:00 AM VP [employer] Pulse 85 10/04/2024 10:00 AM VP [employer] Temperature - - Respiratory Rate - - Oxygen Saturation 94% 10/04/2024 10:00 AM VP [employer] Inhaled Oxygen Concentration - - Weight 65.8 kg (145 lb) 10/04/2024 10:00 AM [employer] Height 157.5 cm (5' 2 ) 10/04/2024 10:00 AM VP [employer] Body Mass Index 26.52 10/04/2024 10:00 AM VP [employer] Plan of Treatment Upcoming Encounters Date Type Department Care Team (Late st Contact Info) Description 04/27/2025 9:45 AM CDT Office Visit [facility] Endocrinology [address] [place] [address] Vikram Christopher MD [address] [place] [address] Health Maintenance Due Date Last Done Comments DTAP/TDAP/TD VACCINES (1 - Tdap) 1976 PNEUMOCOCCAL VACCINE 50+ YEA RS (1 of 2 - PCV) 1976 BREAST CANCER SCREENING 1997 COLORECTAL SCREENING 2002 Colorectal Cancer Screening 2002 FIT-DNA Q 3 years 2002 FIT/FOBT Q 1 year 2002 Flex Sig/CT Colonography Q 5 years 2002 ZOSTER VACCINE (1 of 2) 2007 DIABETES ANNUAL RETINAL EXAM 04/22/2022 04/22/2021 INFLUENZA VACCINE (#1) 2024 DIABETES MICROALBUMIN ANNUAL SCREEN 03/10/2025 03/10/2024, 03/05/2024, 01/19/2023, Additional history exists LDL CHOLESTEROL ANNUAL 03/10/2025 , 08/05/2023, 07/19/2022, Additional history exists DIABETES HBA1C Q 6 MONTHS 04/06/20255, 03/10/2024, 03/05/2024, Additional history exists DIABETES ANNUAL FOOT EXAM 10/04/20252024, 03/10/2024, 01/06/2023, Additional history exists RSV VACCINE (60+ or ) (1 - 1-dose 75+ series) 2032 OSTEOPOROSIS SCREENING Completed 07/10/2023, 2020 Procedures Procedure Name Priority Date/Time Associated Diagnosis Comments VITAMIN B12 LEVEL Routine 10/04/2024 11: 01 AM VP [employer] ALT Routine 10/04/2024 11:01 AM [employer] HEMOGLOBIN A1C Routine 10/04/2024 11:01 AM [employer] MICROALBUMIN/CREATI NINE RATIO, RANDOM UR Routine 03/10/2024 10:33 AM CDT LIPID PANEL Routine 03/10/2024 10:33 AM CDT Type 2 diabetes mellitus with hypoglycemia without coma, without long-term current use of insulin ([facility]) XR DEXA BONE DENSITY AXIAL 1 OR MORE SITES Routine 07/10/2023 10:33 AM [employer] Age-related osteoporosis without current pathological fracture HM DIABETES EYE EXAM Routine 04/22/2021 from Last 3 Months or Most Recently Relevant to Health Maintenance Results * ALT (10/04/2024 11:01 AM VP [employer]) ALT 17 6 - 29 U/L [facility] Comment: Test Performed at: [facility] [address] [place] [address] Za Díaz MD 10/04/2024 11:0 1 AM [employer] 10/04/2024 11:03 AM [employer] Vikram Christopher MD CHEMISTRY ORDERABLES Final Result [facility] [phone] [facility] [address] [address] * (ABNORMAL) HEMOGLOBIN A1C (10/04/2024 11:01 AM VP [employer] WE[employer]) Pathologist [facility] HEMOGLOBIN A1C 5.8(H) <5.7 % of total Hgb [facility] Comment: For someone without known diabetes, a hemoglobin A1c value between 5.7% and 6.4% is consistent with prediabetes and should be confirmed with a follow-up test. For someone with known diabetes, a value <7% indicates that their diabetes is well controlled. A1c targets should be individualized based on duration of diabetes, age, comorbid conditions, and other considerations. This assay result is consistent with an increased risk of diabetes. Currently, no consensus exists regarding use of hemoglobin A1c for diagnosis of diabetes for children. ESTIMATED AVERAGE GLUCOSE (MG/DL) 120 mg/dL [facility] ESTIMATED AVERAGE GLUCOSE (MMOL/L) 6.6 mmol/L [facility] Comment: Test Performed at: [facility] [address] [place] [address] Za Díaz 10/04/2024 11:0 1 AM [employer] 10/04/2024 11:03 AM [employer] Vikram Christopher MD CHEMISTRY ORDERABLES Final Result [facility] [phone] [facility] [address] [place] [address] * (ABNORMAL) VITAMIN B12 LEVEL (10/04/2024 11:01 AM VP [employer]) Pathologist [facility] VITAMIN B12 1674(H) 200 - 1100 pg/mL [facility] Comment: Test Performed at: [facility] [address] [address] [address] Za Díaz MD 10/04/2024 11:0 1 AM [employer] 10/04/2024 11:03 AM [employer] Vikram Christopher MD CHEMISTRY ORDERABLES Final Result Performing Organization Address [facility]/ZIP Co de Phone Number [facility] [phone] [facility] [address] [place] [address] * MICROALBUMIN/CREATININE RATIO, RANDOM UR (03/10/2024 10:33 AM CDT) Creatinine, Urine 99 20 - 275 mg/dL [facility] MICROALBUMIN, URINE 0.4 See Note: mg/dL [facility] Comment: Reference Range: Reference Range Not established MICROALBUMIN/CREAT RATIO, UR 4 <30 mg/g creat [facility] Comment: The ADA defines abnormalities in albumin excretion as follows: Albuminuria Category Result (mg/g creatinine) Normal to Mildly increased <30 Moderately increased 30-299 Severely increased > OR = 300 The ADA recommends that at least two of three specimens collected within a 3-6 month period be abnormal before considering a patient to be within a diagnostic category. Test Performed at: [facility] [address] Za Díaz MD 03/10/2024 10:3 3 AM CDT 03/10/2024 10:37 AM CDT Vikram Christopher MD URINE ORDERABLES Katherine l Result Performing Organization Address [facility] Co de Phone Number [facility] [phone] [facility] [address] [place] [address] * LIPID PANEL (03/10/2024 10:33 AM CDT) CHOLESTEROL 158 <200 mg/dL [facility] HDL 60 > OR = 50 mg/dL [facility] TRIGLYCERIDE 66 <150 mg/dL [facility] LDL CALCULATED 83 mg/dL (calc) [facility] Comment: Reference range: <100 Desirable range <100 mg/dL for primary prevention; <70 mg/dL for patients with CHD or diabetic patients with > or = 2 CHD risk factors. LDL-C is now calculated using the Concepcion calculation, which is a validated novel method providing better accuracy than the Friedewald equation in the estimation of LDL-C. Rio SS et al. TOSHA. 2013;310(19): 5465-8033 (http://education.Tailwind/faq/CYJ221) CHOL/HDL RATIO 2.6 <5.0 (calc) [facility] NON-HDL CHOLESTEROL 98 <130 mg/dL (calc) [facility] Comment: For patients with diabetes plus 1 major ASCVD risk factor, treating to a non-HDL-C goal of <100 mg/dL (LDL-C of <70 mg/dL) is considered a therapeutic option. Test Performed at: [facility] [address] [place] [address] Za Díaz MD Blood 03/10/2024 10:3 3 AM CDT 03/10/2024 10:37 AM CDT Vikram Christopher MD CHEMISTRY ORDERABLES Final Result [facility] [phone] [facility] [address] [facility] [place] [address] * XR DEXA BONE DENSITY AXIAL 1 OR MORE SITES (07/10/2023 10:33 AM VP [employer] WE[employer]) Anatomical Region Laterality Modality Digital Radiogra phy 07/10/2023 10:3 4 AM VP [employer] Impressions 07/10/2023 3:16 PM VP [employer] IMPRESSION: This is a summary page. Please refer to the complete detailed report found in the Imaging Section of the [facility] EMR, including absolute bone mineral density values. Osteoporotic BMD. Comments: Bone mineral density measured in the spine may be unreliable due to the impact of sclerotic degenerative changes. Statistical change: There is a statistically significant decrease in bone mineral density at the L1-L2 measurement site(s), 5.1% lower than in 2020. A statistically significant change is defined as a change of greater than 2.5 standard deviations in the least significant difference (LSD) from the prior study. Least significant differences and statistically significant changes are defined as follows: Lumbar spine: +/- 0.010 g/cm2 LSD (+/- 0.025 g/cm2 statistically significant change) Femoral neck: +/- 0.014 g/cm2 (+/- 0.035 g/cm2) Forearm radius 33%: +/- 0.020 g/cm2 (+/- 0.050 g/cm2) FRAX FRACTURE RISK ASSESSMENT: Risk factors: Parental hip fracture, personal history of fracture, secondary osteoporosis. 10 Year Probability Of Fracture Major Osteoporotic: 40.5 % Hip: 8.4 % Comparison population: [place], Race: FRAX risk assessment is not validated in patients with osteoporotic bone mineral density and may not accurately reflect true fracture risk. A major osteoporotic fracture is defined as a fracture of the spine, forearm, hip or shoulder. Definitions: Normal: T-score >= -1.0 Osteopenia T-score less than -1.0 and above -2.5 Osteoporosis: T-score <= -2.5 Follow-up Recommendations: Patients without high risk factors for osteoporosis T-score -1.0 to -1.5 - Consider repeat BMD in 5-10 years T-score -1.5 to - 2.0 - Consider repeat BMD in 3-5 years T-score -2.0 to - 2.5 - Consider repeat BMD every 2 years Patients on treatment for osteoporosis 1-2 years after initiation of treatment and every 2 years thereafter DICTATION LOCATION: Location [facility] - [facility] 07/10/2023 3:16 PM VP [employer] WE[employer] EXAMINATION: BONE DENSITY STUDY (DXA) DATE: 07/10/2023 10:33 AM HISTORY: See Diagnosis Age-related osteoporosis without current pathological fracture PROCEDURE: Planar images of the lumbar spine and/or hip(s) using a [employer] DEXA scanner for bone mineral density determination (BMD). Prior bone density: 05/21/2021 FINDINGS: Lumbar Spine (L1-L2): T-Score: -3.8 Left Femoral Neck: T-Score: -2.4 Right Femoral Neck: T-Score: -2.9 Procedure Note Asrh Palma MD - 07/10/2023 EXAMINATION: BONE DENSITY STUDY (DXA) DATE: 07/10/2023 10:33 AM HISTORY: See Diagnosis Age-related osteoporosis without current pathological fracture PROCEDURE: Planar images of the lumbar spine and/or hip(s) using a [employer] DEXA scanner for bone mineral density determination (BMD). Prior bone density: 05/21/2021 FINDINGS: Lumbar Spine (L1-L2): T-Score: -3.8 Left Femoral Neck: T-Score: -2.4 Right Femoral Neck: T-Score: -2.9 IMPRESSION: This is a summary page. Please refer to the complete detailed report found in the Imaging Section of the [facility] EMR, including absolute bone mineral density values. Osteoporotic BMD. Comments: Bone mineral density measured in the spine may be unreliable due to the impact of sclerotic degenerative changes. Statistical change: There is a statistically significant decrease in bone mineral density at the L1-L2 measurement site(s), 5.1% lower than in 2020. A statistically significant change is defined as a change of greater than 2.5 standard deviations in the least significant difference (LSD) from the prior study. Least significant differences and statistically significant changes are defined as follows: Lumbar spine: +/- 0.010 g/cm2 LSD (+/- 0.025 g/cm2 statistically significant change) Femoral neck: +/- 0.014 g/cm2 (+/- 0.035 g/cm2) Forearm radius 33%: +/- 0.020 g/cm2 (+/- 0.050 g/cm2) FRAX FRACTURE RISK ASSESSMENT: Risk factors: Parental hip fracture, personal history of fracture, secondary osteoporosis. 10 Year Probability Of Fracture Major Osteoporotic: 40.5 % Hip: 8.4 % Comparison population: [place], Race: FRAX risk assessment is not validated in patients with osteoporotic bone mineral density and may not accurately reflect true fracture risk. A major osteoporotic fracture is defined as a fracture of the spine, forearm, hip or shoulder. Definitions: Normal: T-score >= -1.0 Osteopenia T-score less than -1.0 and above -2.5 Osteoporosis: T-score <= -2.5 Follow-up Recommendations: Patients without high risk factors for osteoporosis T-score -1.0 to -1.5 - Consider repeat BMD in 5-10 years T-score -1.5 to - 2.0 - Consider repeat BMD in 3-5 years T-score -2.0 to - 2.5 - Consider repeat BMD every 2 years Patients on treatment for osteoporosis 1-2 years after initiation of treatment and every 2 years thereafter DICTATION LOCATION: Location 1 - [facility] Vikram Christopher MD DIAGNOSTIC IMAGING OR DERABLES Final Result * DIABETES EYE EXAM (04/22/2021) Abstract Provider HEALTH MAINTENANCE Edited Resu lt - Final [facility] from Last 3 Months or Most Recently Relevant to Health Maintenance Insurance [facility] [id number] [address] [facility] Address: [address] [place] [address] Care Teams Burlap Worker Relationship Specialty Start Date End Date Lanny Alonzo MD PCP - General Family Practice 11/24/18
--- OUTSIDE RECORDS SUMMARY | 2024-10-13 02:25 | XMS_ITS | Referral Summary ---
Author Organization [facility] [employer] Address [address] [place] [address] Care Team Providers Care Personal Lines Agent Name Role Phone Lanny Alonzo MD Primary Care Provider + Source Comments [facility] [employer],non-owned Affiliates and Associated Physician Practices is amultiple site organization consisting of ambulatory clinics and hospital sitesin [place], [place], [place] and [place]. This disclosure is being madepursuant to the Care Everywhere program and may not contain all information available regarding this patient. Last updated 18.[facility] [employer] Allergies Active Allergy Reactions Criticality Noted Date Comments Augmentin Diarrhea 05/21/2018 Medications Be aware that medications may not be up to date on this document. Always verify current medications with the patient. No known medications Active Problems No known active problems Social History Tobacco Use Types Packs/Day Years Used Date Smoking Tobacco: Never Smokeless Tobacco: Never Comments:no smoking househol d Sex and Gender Information Value Date Recorded Sex Assigned at Not on file Gender Identity Not on file Sexual Orientation Not on file Last Filed Vital Signs Vital Sign Reading Time Taken Comments Blood Pressure 106/70 05/21/2018 10:02 AM CDT Pulse 79 05/21/2018 10:02 AM CDT Temperature 36.7 C (98 F) 05/21/2018 10:02 AM CDT Respiratory Rate 14 05/21/2018 10:02 AM CDT Oxygen Saturation 98% 05/21/2018 10:02 AM CDT Inhaled Oxygen Concentration - - Weight 68.5 kg (151 lb) 05/21/2018 10:02 AM CDT Height 157.5 cm (5' 2 ) 05/21/2018 10:02 AM CDT Body Mass Index 27.62 05/21/2018 10:02 AM CDT Plan of Treatment Not on file Care Teams Personal Lines Agent Relationship Specialty Start Date End Date Lanny Alonzo MD [address] [place] [address] PCP - General 05/31/18
--- OUTSIDE RECORDS SUMMARY | 2024-10-13 02:25 | XMS_ITS | Patient Health Summary ---
Author Organization [facility] Address [address] [place] [address] Care Team Providers Care Special Day Class Teacher Name Role Phone Lanny Alonzo MD Primary Care Provider + Note from [facility],non-owned Affiliates and Associated Physician Practices is amultiple site organization consisting of ambulatory clinics and hospital sitesin [place], [place], [place] and [place]. This disclosure is being madepursuant to the Care Everywhere program and may not contain all information available regarding this patient. Last updated 18.[facility] Allergies * Augmentin(Diarrhea) Medications Be aware that medications may not [...] Mass Index 27.62 05/21/2018 10:02 AM CDT Care Teams Special Day Class Teacher Relationship Specialty Start Date End Date Lanny Alonzo MD [address] [place] [address] PCP - General 05/31/18
--- OUTSIDE RECORDS SUMMARY | 2024-10-13 02:26 | XMS_ITS | Encounter Summary ---
Author Organization [facility] Address [address] [place] [address] Care Team Providers Care Router Setter Name Role Phone Lanny Alonzo MD Primary Care Provider +1- [phone] Encounter Details Date Type Department Care Team (Late Contact Info) Description 10/05/2024 Results Follow-Up [facility] Endocrinology [address] [place] [address] Vikram Christopher MD [address] [place] [address] HEMOGLOBIN A1C, ALT, VITAMIN B12 LEVEL Social History Tobacco Use Types Packs/Day Years Used Date Smoking Tobacco: Never Smokeless Tobacco: Never Comments Unknown Sex and Gender Information Value Date Recorded Sex Assigned at Not on file Legal Sex Female 2:43 PM CDT Gender Identity Not on file Sexual Orientation Not on file documented as of this encounter Plan of Treatment Upcoming Encounters Date Type Department Care Team (Late Contact Info) Description 04/27/2025 9:45 AM CDT Office Visit [facility] Endocrinology [address] [place] [address] Vikram Christopher MD [address] [place] [address] documented as of this encounter Visit Diagnoses Not on filedocumented in this encounter Care Teams Router Setter Relationship Specialty Start Date End Date Lanny Alonzo MD PCP - General Family Practice 11/24/18 documented as of this encounter
--- OUTSIDE RECORDS SUMMARY | 2024-10-13 02:26 | XMS_ITS | Referral Summary ---
Author Organization [facility] Address [address] [place] [address] Care Team Providers Care Science Professor Name Role Phone Lanny Alonzo MD Primary Care Provider Social History Tobacco Use Types Packs/Day Years Used Date Smoking Tobacco: Never Assessed Personal Safety Answer Date Recorded Getting School Help Needed Not on file 10/17 Comments Unknown Sex and Gender Information Value Date Recorded Sex Assigned at Not on file Legal Sex Female 3:50 AM PROFESSIONAL POKER [employer]ER Gender Identity Not on file Sexual Orientation Not on file Plan of Treatment Not on [place] [address] Sevar Consult [facility] Care Teams Science Professor Relationship Specialty Start Date End Date Lanny Alonzo MD [address] [facility] [address] [place], [place] [id number] PCP - General Family Medicine 01/06/20
--- OUTSIDE RECORDS SUMMARY | 2024-10-13 02:26 | XMS_ITS | Clinical Summary ---
Author Organization [email or web address] Address [address] [place] [address] Care Team Providers Care Christian Science Nurse Name Role Phone Lanny Alonzo MD Primary Care Provider + Source Comments [facility],non-owned Affiliates and Associated Physician Practices is amultiple site organization consisting of ambulatory clinics and hospital sitesin [place], [place], [place] and [place]. This disclosure is being madepursuant to the Care Everywhere program and may not contain all information available regarding this patient. Last updated 18.[facility] Allergies Active Allergy Reactions Criticality Noted Date Comments Augmentin Diarrhea 05/21/2018 Medications Be aware that medications may not be up to date on this document. Always verify current medications with the patient. No known medications Active Problems No known active problems Family History Medical History Relation Name Comments CVA Father CAD (Coronary Artery Disease) Mother Relation Name Status Comments Father Mother Social History Tobacco Use Types Packs/Day Years [...] 05/21/2018 10:02 AM CDT Plan of Treatment Health Maintenance Due Date Last Done Comments BONE DENSITY TESTING 1957 COLOGUARD (AGES 45-75) - COL ON CA SCREENING 1957 COLON MONITORING 1957 COLONOSCOPY - COLON CA SCREENING 1957 CT COLONOGRAPHY - COLON CA SCREENING 1957 Colorectal Cancer Screening 1957 FIT - COLON CA SCREENING 1957 FLEX SIG - COLON CA SCREENING 1957 LIPID TESTING 1957 MAMMOGRAM 1957 HEPATITIS C SCREENING 05/31/1975 DTAP/TDAP/TD VACCINES (1 - Tdap) 1976 PNEUMOCOCCAL VACCINE 50+ (1 of 1 - PCV) 2007 ZOSTER VACCINE (1 of 2) 2007 SCREENING FOR DIABETES 05/21/2018 COVID-19 VACCINE (1 - 2023-2 5 season) 2024 INFLUENZA VACCINE (#1) 2024 DEPRESSION SCREENING 08/03/2024 Respiratory Syncytial Virus (RSV) Vaccine Pt: or over 60 yrs (1 - 1-dose 75+ series) 2032 HEPATITIS B VACCINE Aged Out No longe r eligible based on patient's age to complete this topic HIB VACCINE Aged Out No longer eligi ble based on patient's age to complete this topic HPV VACCINE Aged Out No longer eligi ble based on patient's age to complete this topic MENINGOCOCCAL (Group B) VACC INE SHARED DECISION-MAKING Aged Out No longer eligibl e based on patient's age to complete this topic MENINGOCOCCAL GROUPS A/C/Y/W VACCINE Aged Out No longer eligible b ased on patient's age to complete this topic Care Teams Christian Science Nurse Relationship Specialty Start Date End Date Lanny Alonzo MD [address] [place] [address] PCP - General 05/31/18
--- OUTSIDE RECORDS SUMMARY | 2024-10-13 02:26 | XMS_ITS | Continuity of Care Document ---
Author Organization [facility] Address [address] [place] [address] Rd [address] [place] [address] Phone Care Team Providers Care Compensator Worker Name Role Phone Edgar PT,MPT,ATC, Scott Unavailable Unavai lable Procedures Procedure Date Screen Advance Directives Directive Yes / No Effective Date File Name No Information Encounters Encounter Description Practice Location Reason(s) For Visit Diagnoses Date Provider Providers Copied on Encounter [facility], [address] [place], [place] [address], [place], [place], [id number], [place] tel:[phone] [place] No Diagnosis Edgar Moss , [place], [place]. Referring Provider: Physician Screen. Family History Family Member Type Diagnosis Age At Onset No Information Payers Payer name Insurance type Covered republican ID Authoriza tiernst(s) Self Pay - GFE Social History Type Description Quantity Date Captured Comments Sex Female Smoking Status No Information Chief Complaint And Reason For Visit No Information Reason For Referral Reason For Referral No Information History Of Present Illness Encounter Date Complaint History Of Prese nt Illness No Information Functional Status Date Functional Assessmen t No Information Instructions Date Instruction Additional Infor mation No Information Assessments Type Assessment Date No Information Patient Care Teams Name Effective Dates (start - stop) Status Members No Information
--- OUTSIDE RECORDS SUMMARY | 2024-10-13 02:26 | XMS_ITS | Clinical Summary ---
Author Organization [facility] Address [facility] [place] [address] Care Team Providers Care Window Glass Cutter Off Name Role Phone Lanny Alonzo MD Primary Care Provider Social History Tobacco Use Types Packs/Day Years Used Date Smoking Tobacco: Never Assessed Personal Safety Answer Date Recorded Getting School Help Needed Not on file 10/17 Comments Unknown Sex and Gender Information Value Date Recorded Sex Assigned at Not on file Legal Sex Female 3:50 AM QA LEAD Gender Identity Not on file Sexual Orientation Not on file Plan of Treatment [place] [address] [employer] [facility] Care Teams Window Glass Cutter Off Relationship Specialty Start Date End Date Lanny Alonzo MD [address] [facility] [address] [place], [place] [id number] PCP - General Family Medicine 01/06/20
[2024-10-13 02:28] VITALS: BP 130/82; PULSE 92; RESP 15; TEMP 36.4; O2SAT 95
--- OUTSIDE RECORDS SUMMARY | 2024-10-13 04:02 | XMS_ITS | Referral Summary ---
Author Organization [facility] Address [address] [place] [address] Care Team Providers Care Television Maintenance Man Name Role Phone Lanny Alonzo MD Primary Care Provider + Source Comments [facility],non-owned Affiliates and Associated Physician Practices is amultiple site organization consisting of ambulatory clinics and hospital sitesin [place], [place], [place] and [place]. This disclosure is being madepursuant to the Care Everywhere program and may not contain all information available regarding this patient. Last updated 18.[facility] Allergies Active Allergy Reactions Criticality Noted Date [...] of Treatment Not on file Care Teams Television Maintenance Man Relationship Specialty Start Date End Date Lanny Alonzo MD [address] [place] [address] PCP - General 05/31/18
--- OUTSIDE RECORDS SUMMARY | 2024-10-13 04:02 | XMS_ITS | Encounter Summary ---
Author Organization [facility] Address [address] [place] [address] Care Team Providers Care Replanting Machine Crewman Name Role Phone Lanny Alonzo MD Primary Care Provider +1- [phone] Encounter Details Date Type Department Care Team (Late Contact Info) Description 10/05/2024 Results Follow-Up [facility] [address] [place] [address] Vikram Christopher MD [address] [place] [address] HEMOGLOBIN A1C, ALT, VITAMIN B12 LEVEL [...] Description 04/27/2025 9:45 AM CDT Office Visit [facility] [address] [place] [address] Vikram Christopher MD [address] [place] [address] documented as of this encounter Visit Diagnoses Not on filedocumented in this encounter Care Teams Replanting Machine Crewman Relationship Specialty Start Date End Date Lanny Alonzo MD PCP - General Family Practice 11/24/18 documented as of this encounter
--- OUTSIDE RECORDS SUMMARY | 2024-10-13 04:02 | XMS_ITS | Referral Summary ---
Author Organization [facility] Address [address] [place] [address] Care Team Providers Care Hotel Service Manager Name Role Phone Lanny Alonzo MD Primary Care Provider Social History Tobacco Use Types Packs/Day Years Used Date Smoking Tobacco: Never Assessed Personal Safety Answer Date Recorded Getting School Help Needed Not on file 10/17 Comments Unknown Sex and Gender Information Value Date Recorded Sex Assigned at Not on file Legal Sex Female 3:50 AM MOBILE DESIGNER Gender Identity Not on file Sexual Orientation Not on file Plan of Treatment Not [place] [address] [employer] [facility] Care Teams Hotel Service Manager Relationship Specialty Start Date End Date Lanny Alonzo MD [address] [facility] [address] [place], [place] [id number] PCP - General Family Medicine 01/06/20
--- OUTSIDE RECORDS SUMMARY | 2024-10-13 04:02 | XMS_ITS | Patient Health Summary ---
Author Organization [facility] Address [address] [place] [address] Care Team Providers Care School Office Manager Name Role Phone Lanny Alonzo MD Primary Care Provider + Note from [facility],non-owned Affiliates and Associated Physician Practices is amultiple site organization consisting of ambulatory clinics and hospital sitesin [place], [place], [place] and [place]. This disclosure is being madepursuant to the Care Everywhere program and may not contain all information available regarding this patient. Last updated 18.[facility] Allergies * Augmentin(Diarrhea) Medications Be aware that [...] 27.62 05/21/2018 10:02 AM CDT Care Teams School Office Manager Relationship Specialty Start Date End Date Lanny Alonzo MD [address] [facility] [address] [place] [address] PCP - General 05/31/18
--- OUTSIDE RECORDS SUMMARY | 2024-10-13 04:02 | XMS_ITS | Clinical Summary ---
Author Organization [facility] [employer] Address [address] [place] [address] Care Team Providers Care Urgent Care Physician Name Role Phone Lanny Alonzo MD Primary Care Provider + Source Comments [facility] [employer],non-owned Affiliates and Associated Physician Practices is amultiple site organization consisting of ambulatory clinics and hospital sitesin [place], [place], [place] and [place]. This disclosure is being madepursuant to the Care Everywhere program and may not contain all information available regarding this patient. Last updated 18.[facility] [employer] Allergies Active Allergy Reactions Criticality Noted Date [...] age to complete this topic Care Teams Urgent Care Physician Relationship Specialty Start Date End Date Lanny Alonzo MD [address] [place] [address] PCP - General 05/31/18
--- OUTSIDE RECORDS SUMMARY | 2024-10-13 04:02 | XMS_ITS | Clinical Summary ---
Author Organization [facility] Address [address] [place] [address] Phone Care Team Providers Care Lead Project Manager Name Role Phone Lnany Alonzo MD Primary Care Provider +1- [phone] Allergies Active Allergy Reactions Criticality Noted Date [...] 3 Active fluticasone propionate (FLONASE) 50 mcg/spray [place], Suspension nasal inhaler SHAKE LIQUID AND USE [...] STL ABSTRACTION Provider, Abstract 10/05/2024 Results Follow-Up [facility] [address] [place] [address] Vikram Christopher MD HEMOGLOBIN A1C, ALT, VITAMIN B12 LEVEL 10/04/2024 9:45 AM FUR DRUMMER Office Visit [facility] [address] [place] [address] Vikram Christopher MD Type 2 diabetes mellitus without complication, without long-term current use of insulin ([facility]) (Primary Dx); Age-related osteoporosis without current pathological fracture; Vitamin D deficiency; Elevated ALT measurement 10/04/2024 External Device Data STL ABSTRACTION Provider, Abstract 10/04/2024 Orders Only Initial Department [address] [place] [address] Dr KONG: [place] [address] Provider, Historical 09/21/2024 External Device Data ST[facility] ABSTRACTION Provider, Abstract 08/31/2024 External Device Data [facility] ABSTRACTION Provider, Abstract 08/25/2024 External Device Data [facility] ABSTRACTION Provider, Abstract 08/25/2024 Refill [facility] [address] [place] [address] Vikram Christopher MD 08/24/2024 Refill [facility] [address] [place] [address] Vikram Christopher MD 08/16/2024 External Device Data [...] Comments Blood Pressure 125/83 10/04/2024 10:00 AM FUR DRUMMER Pulse 85 10/04/2024 10:00 AM FUR DRUMMER Temperature - - Respiratory Rate - - Oxygen Saturation 94% 10/04/2024 10:00 AM FUR DRUMMER Inhaled Oxygen Concentration - - Weight 65.8 kg (145 lb) 10/04/2024 10:00 AM FUR DRUMMER Height 157.5 cm (5' 2 ) 10/04/2024 10:00 AM FUR DRUMMER Body Mass Index 26.52 10/04/2024 10:00 AM FUR DRUMMER Plan of Treatment Upcoming Encounters Date Type Department Care Team (Late st Contact Info) Description 04/27/2025 9:45 AM CDT Office Visit [facility] [address] [place] [address] Vikram Christopher MD [address] [place] [address] Health Maintenance Due Date Last [...] B12 LEVEL Routine 10/04/2024 11: 01 AM FUR DRUMMER ALT Routine 10/04/2024 11:01 AM FUR DRUMMER HEMOGLOBIN A1C Routine 10/04/2024 11:01 AM FUR DRUMMER MICROALBUMIN/CREATI NINE RATIO, RANDOM UR Routine 03/10/2024 10:33 AM CDT LIPID PANEL Routine 03/10/2024 10:33 AM CDT Type 2 diabetes mellitus with hypoglycemia without coma, without long-term current use of insulin ([facility]) XR DEXA BONE DENSITY AXIAL 1 OR MORE SITES Routine 07/10/2023 10:33 AM FUR DRUMMER Age-related osteoporosis without current pathological fracture HM DIABETES EYE EXAM Routine 04/22/2021 from Last 3 Months or Most Recently Relevant to Health Maintenance Results * ALT (10/04/2024 11:01 AM FUR DRUMMER) ALT 17 6 - 29 U/L [facility] Comment: Test Performed at: [facility] [address] [place] [address] Za Díaz MD 10/04/2024 11:0 1 AM FUR DRUMMER 10/04/2024 11:03 AM FUR DRUMMER Vikram Christopher MD CHEMISTRY ORDERABLES Final Result [facility] [phone] [facility] [address] [address] * (ABNORMAL) HEMOGLOBIN A1C (10/04/2024 11:01 AM FUR DRUMMER) Pathologist [facility] HEMOGLOBIN A1C 5.8(H) <5.7 % of total Hgb [facility] Comment: For someone without known diabetes, [...] children. ESTIMATED AVERAGE GLUCOSE (MG/DL) 120 mg/dL [facility] ESTIMATED AVERAGE GLUCOSE (MMOL/L) 6.6 mmol/L [facility] Comment: Test Performed at: [facility] [address] [place] [address] Za Díaz 10/04/2024 11:0 1 AM FUR DRUMMER 10/04/2024 11:03 AM FUR DRUMMER Vikram Christopher MD CHEMISTRY ORDERABLES Final Result [facility] [phone] [facility] [email or web address] [address] [place] [address] * (ABNORMAL) VITAMIN B12 LEVEL (10/04/2024 11:01 AM FUR DRUMMER) Pathologist [facility] VITAMIN B12 1674(H) 200 - 1100 pg/mL [facility] Comment: Test Performed at: [facility] [address] [address] [address] Za Díaz MD 10/04/2024 11:0 1 AM FUR DRUMMER 10/04/2024 11:03 AM FUR DRUMMER Vikram Christopher MD CHEMISTRY ORDERABLES Final Result Performing Organization Address [facility]/ZIP Co de Phone Number [facility] [phone] [facility] [address] [place] [address] * MICROALBUMIN/CREATININE RATIO, RANDOM UR (03/10/2024 10:33 [...] within a diagnostic category. Test Performed at: [facility] [address] Za Díaz MD 03/10/2024 10:3 3 AM CDT 03/10/2024 10:37 AM CDT Vikram Christopher MD URINE ORDERABLES Katherine l Result Performing Organization Address [facility] Co de Phone Number [facility] [phone] [email or web address] [address] [place] [address] * LIPID PANEL (03/10/2024 10:33 AM CDT) [...] LDL-C. Rio SS et al. TOSHA. 2013;310(19): 9316-3164 (http://education.[employer]/faq/NSQ370) CHOL/HDL RATIO 2.6 <5.0 (calc) [facility] NON-HDL CHOLESTEROL 98 <130 mg/dL (calc) [facility] Comment: For patients with diabetes plus 1 major ASCVD risk factor, treating to a non-HDL-C goal of <100 mg/dL (LDL-C of <70 mg/dL) is considered a therapeutic option. Test Performed at: [facility] [address] [place] [address] Za Díaz MD Blood 03/10/2024 10:3 3 AM CDT 03/10/2024 10:37 AM CDT Vikram Christopher MD CHEMISTRY ORDERABLES Final Result [facility] [phone] [facility] [address] [place] [address] * XR DEXA BONE DENSITY AXIAL 1 OR MORE SITES (07/10/2023 10:33 AM FUR DRUMMER) Anatomical Region Laterality Modality Digital Radiogra phy 07/10/2023 10:3 4 AM FUR DRUMMER Impressions 07/10/2023 3:16 PM FUR DRUMMER IMPRESSION: This is a summary page. Please refer to the complete detailed report found in the Imaging Section of the [facility] EMR, including absolute bone mineral density values. [...] years thereafter DICTATION LOCATION: Location 1 - [facility] 07/10/2023 3:16 PM FUR DRUMMER EXAMINATION: BONE DENSITY STUDY (DXA) DATE: 07/10/2023 10:33 AM HISTORY: See Diagnosis Age-related osteoporosis without current pathological fracture PROCEDURE: Planar images of the lumbar spine and/or hip(s) using a [employer] DEXA scanner for bone mineral density determination (BMD). Prior bone density: 05/21/2021 FINDINGS: Lumbar Spine (L1-L2): T-Score: -3.8 Left Femoral Neck: T-Score: -2.4 Right Femoral Neck: T-Score: -2.9 Procedure Note Arsh Palma MD - 07/10/2023 EXAMINATION: BONE DENSITY STUDY (DXA) DATE: 07/10/2023 10:33 AM HISTORY: See Diagnosis Age-related osteoporosis without current pathological fracture PROCEDURE: Planar images of the lumbar spine and/or hip(s) using a [employer] DEXA scanner for bone mineral density determination (BMD). Prior bone density: 05/21/2021 FINDINGS: Lumbar Spine (L1-L2): T-Score: -3.8 Left Femoral Neck: T-Score: -2.4 Right Femoral Neck: T-Score: -2.9 IMPRESSION: This is a summary page. Please refer to the complete detailed report found in the Imaging Section of the [facility] EMR, including absolute bone mineral density values. [...] years thereafter DICTATION LOCATION: Location 1 - [facility] Vikram Christopher MD DIAGNOSTIC IMAGING OR DERABLES Final Result * DIABETES EYE EXAM (04/22/2021) Abstract Provider HEALTH MAINTENANCE Edited Resu lt - Final [facility] from Last 3 Months or Most Recently Relevant to Health Maintenance Insurance [facility] [id number] [employer] [facility] Address: [address] [place] [address] Care Teams Lead Project Manager Relationship Specialty Start Date End Date Lanny Alonzo MD PCP - General Family Practice 11/24/18
--- OUTSIDE RECORDS SUMMARY | 2024-10-13 04:02 | XMS_ITS | Clinical Summary ---
Author Organization [facility] Address [facility] [place] [address] Care Team Providers Care Casing Fluid Tender Name Role Phone Lanny Alonzo MD Primary Care Provider Social History Tobacco Use Types Packs/Day Years Used Date Smoking Tobacco: Never Assessed Personal Safety Answer Date Recorded Getting School Help Needed Not on file 10/17 Comments Unknown Sex and Gender Information Value Date Recorded Sex Assigned at Not on file Legal Sex Female 3:50 AM EVP OPERATIONS Gender Identity Not on file Sexual Orientation Not on file Plan of Treatment Not [place] [address] [employer] [facility] Care Teams Casing Fluid Tender Relationship Specialty Start Date End Date Lanny Alonzo MD [address] [facility] [address] [place], [place] [id number] PCP - General Family Medicine 01/06/20
--- OUTSIDE RECORDS SUMMARY | 2024-10-13 04:02 | XMS_ITS | Continuity of Care Document ---
Author Organization [facility] Address [address] [place] [address] Rd [address] [place] [address] Phone Care Team Providers Care Clinical Trial Associate Name Role Phone Edgar PT,MPT,ATC, Scott Unavailable Unavai lable Procedures Procedure Date Screen Advance Directives Directive Yes / No Effective Date File Name No Information Encounters Encounter Description Practice Location Reason(s) For Visit Diagnoses Date Provider Providers Copied on Encounter [facility], [address] [place], [place] [address], [place], [place], [id number], [place] tel:[phone] [place] No Diagnosis Edgar Moss , [place], [place]. Referring Provider: Physician Screen. Family History Family Member Type Diagnosis Age At Onset No Information Payers Payer name Insurance type Covered democrat ID Authoriza tiernst(s) Self Pay - GFE [...]
[2024-10-13] MEDS: SODIUM CHLORIDE 0.9% IV 1,000 ML 999 ML IV CONT (04:44)
[2024-10-13] MEDS: KETOROLAC 15 MG/ML VIAL (*BKC) IV PUSH (04:45)
[2024-10-13] MEDS: diphenhydrAMINE HCl INJ 50 MG/ML VIAL 25 MG IV PUSH (04:45)
[2024-10-13] MEDS: METOCLOPRAMIDE HCL INJ 10 MG/2 ML VIAL IV PUSH (04:45)
--- NOTE | 2024-10-13 04:52 | ED.GENADULT ---
HPI - General Adult General Chief complaint: Headache Stated complaint: headache Time Seen by Provider: 10/13/24 03:36 History of Present Illness HPI narrative: Patient is a 69-year-old female who presents emergency department this evening complaining of a tension-like headache for the past 5 days. Patient states that the pain is at the back of her head between both of her ears extending down into her neck. Denies any history of migraine headaches. Patient has been using some [id number] medications with minimal to no relief. Denies any vision changes, any photophobia or phonophobia. Denies any nausea or vomiting. Patient states that she went to an urgent care a few days ago to get checked out as she thought that maybe she has an ear infection and she was told both of her ears are normal. Patient describes the pain as constant and throbbing. Denies any recent URI illness, any fevers or chills. No additional symptoms or concerns at this time. Related Data Home Medications ?Medication ?Instructions ?Recorded ?Confirmed ?Last Taken ?Type Vitamin D3 1 tab-cap PO DIRECTED 08/28/23 10/12/24 08/28/23 History tirzepatide 10 mg/0.5 mL 10 mg subcut WEEKLY 05/27/24 10/12/24 Unknown History subcutaneous pen injector (Mounjaro) Vitamin B-12 10/07/24 10/12/24 Unknown History Allergies Allergy/AdvReac Type Severity Reaction Status Date / Time metformin AdvReac Intermediate Diarrhea Verified 10/12/24 11:26 Review of Systems Review of Systems: All systems are reviewed and are negative unless stated otherwise in the HPI. [facility] Past Medical History Medical History Bright red blood per rectum Diabetes Sinusitis AOM (acute otitis media) Asthma Close exposure to COVID-19 virus Hyperglycemia Allergic asthma Asthma Acute sinusitis Surgical History Surgical History No pertinent past surgical history Family History Family History Father Cerebrovascular accident, Onset Age: 77 Mother Family history of congestive heart failure, Onset Age: 69 Hypertension Family history of cardiovascular disease, Onset Age: 70 Family history of arthritis Other Acute myocardial infarction Carcinoma of colon Diabetes mellitus Family history of alcoholism Family history of chronic obstructive pulmonary disease Family history of glaucoma Family history of seizure disorder Social History Social History Social History: Smoking status: Never smoker Second hand tobacco smoke exposure: No Alcohol intake: never Substance use: never Substance use type: does not use Do You Feel Safe in your Home?: Yes Lack of Transportation: No Lack of Food: Never True Current Housing: I Have Housing Concerned About Future Housing: No Difficulty Paying Gas/Electric Bills: No Difficulty Paying for Meds: No Currently Unemployed: No Education: Don't Know Difficulty w/ Childcare or Family Care: No Living arrangements: with family Occupation/Education: 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 HEENT: PERRL, no rhinorrhea, no post nasal drip, oropharynx clear, no temporal tenderness, no photophobia. Neck: Trachea midline, no JVD, no lymphadenopathy. Cardiovascular: Regular rate and rhythm, no murmurs, rubs or gallops, no peripheral edema. Respiratory: Clear to auscultation bilaterally, no tachypnea, no wheezing, no rhonchi, no rubs, no respiratory distress. Abdomen: Soft, nontender, nondistended, no rebound, no guarding, no peritoneal signs. Musculoskeletal: No joint swelling or deformity, normal muscle tone. Skin: No rashes or petechia, no signs of infection. Psychiatric: Alert and oriented, normal behavior and judgment for situation. Neurological: Alert and oriented to person, place, and time. Follows all commands. No focal deficits, speech is clear and fluent. Course Vital Signs Vital signs: Vital Signs Temperature 97.6 F 10/13/24 02:28 Pulse Rate 92 10/13/24 02:28 Respiratory Rate 15 10/13/24 02:28 Blood Pressure 130/82 10/13/24 02:28 Pulse Oximetry 95 10/13/24 02:28 Oxygen Delivery Room Air 10/13/24 02:28 Temperature 97.6 F 10/13/24 02:28 Pulse Rate 92 10/13/24 02:28 Respiratory Rate 15 10/13/24 02:28 Blood Pressure 130/82 10/13/24 02:28 Pulse Oximetry 95 10/13/24 02:28 Oxygen Delivery Room Air 10/13/24 02:28 Medical Decision Making MDM Narrative Medical decision making narrative: The patient was evaluated by myself in the emergency department. History is obtained from patient who is an independent historian and physical exam was performed. External medical records were reviewed at this time. IV was established and pertinent tests were ordered. Patient was administered 1 L IV fluid bolus with normal saline, 15 mg of IV Toradol, 10 mg IV Reglan and 25 mg of IV Benadryl. Imaging studies obtained included CT brain without IV contrast which was independently interpreted by me revealing no acute process, which is pending final radiology interpretation. Differential diagnosis considerations include acute viral syndrome, sinus infection, tension-like headache, otitis media. Comorbidities impacting this visit include none. I have evaluated and discussed social determinants of health with the patient that could potentially impact subsequent diagnosis and treatment plans. On repeat assessment of the patient, reevaluation revealed that the patient is doing well and is in no acute distress. Patient symptoms have improved since she arrived to our emergency department, patient was found resting comfortably asleep on repeat assessment. Repeat vital signs were all reviewed and noted to be stable. Differential diagnosis and treatment plan were discussed with the patient at bedside. Patient agrees with discussion and after shared medical decision making agrees with discharge. All questions were answered to the patient's satisfaction. Patient will follow up with her PCP in 3-5 days. Patient was provided with strict return precautions and instructed to return to the emergency department if any new or worsening symptoms develop. The patient was discharged in stable condition. Vital Signs Vital Signs: Vital Signs Temperature 97.6 F 10/13/24 02:28 Pulse Rate 92 10/13/24 02:28 Respiratory Rate 15 10/13/24 02:28 Blood Pressure 130/82 10/13/24 02:28 Pulse Oximetry 95 10/13/24 02:28 Oxygen Delivery Room Air 10/13/24 02:28 Temperature 97.6 F 10/13/24 02:28 Pulse Rate 92 10/13/24 02:28 Respiratory Rate 15 10/13/24 02:28 Blood Pressure 130/82 10/13/24 02:28 Pulse Oximetry 95 10/13/24 02:28 Oxygen Delivery Room Air 10/13/24 02:28 Discharge Plan Discharge Clinical Impression: Acute tension-type headache Patient Disposition: Home, Self-Care Condition: Improved Instructions: Antibiotic Form, Tension Headache (ED) Additional Instructions: Please follow-up with your family doctor within next 3-5 days. Return to the emergency department for new or worsening symptoms develop. Use ibuprofen and Tylenol as needed for headaches. Maintain your oral hydration by drinking lots of fluids. Patient Language: Urdu Prescriptions: No Action albuterol sulfate 2.5 mg /3 mL (0.083 %) solution for nebulization 2.5 mg inhalation Q6H Qty: 90 0RF Vitamin B-12 albuterol sulfate 90 mcg/actuation HFA aerosol inhaler 2 inh inhalation QID PRN (Reason: shortness of breath or wheezing) Qty: 8.5 0RF (DME) FreeStyle Rosa 2 Sensor Kit See Rx Instructions .ROUTE .MEDSUPPLY Qty: 6 2RF Rx Instructions: As directed (DME) Aeroneb Go Nebulizer Misc See Rx Instructions .Route Qty: 1 0RF Rx Instructions: As directed ipratropium bromide 0.02 % solution 2.5 ml inhalation Q6H PRN (Reason: shortness of breath or wheezing) Qty: 75 0RF Mounjaro 10 mg/0.5 mL pen injector 10 mg subcut WEEKLY Rx Instructions: as per endo nystatin 100,000 unit/gram cream 1 applic topical BID Qty: 30 3RF triamcinolone acetonide 0.1 % cream 1 applic topical BID Qty: 80 0RF cyclobenzaprine 5 mg tablet 5 mg PO TID PRN (Reason: muscle spasm) Qty: 60 0RF (DME) FreeStyle Rosa 2 Inman Misc See Rx Instructions .ROUTE .MEDSUPPLY Qty: 1 0RF Rx Instructions: As directed to check glucose TID albuterol sulfate 90 mcg/actuation HFA aerosol inhaler See Rx Instructions .ROUTE .COMPLEX Qty: 6.7 0RF Dose Instruction: INHALE 1 PUFF BY MOUTH EVERY 4 HOURS NEEDED FOR SHORTNESS OF BREATH OR WHEEZING Rx Instructions: INHALE 1 PUFF BY MOUTH EVERY 4 HOURS NEEDED FOR SHORTNESS OF BREATH OR WHEEZING montelukast 10 mg tablet See Rx Instructions .ROUTE .COMPLEX Qty: 100 0RF Dose Instruction: TAKE 1 TABLET BY MOUTH DAILY Rx Instructions: TAKE 1 TABLET BY MOUTH DAILY fluticasone propionate 50 mcg/actuation spray,suspension See Rx Instructions .ROUTE .COMPLEX Qty: 16 0RF Dose Instruction: SHAKE LIQUID AND USE 1 SPRAY IN EACH NOSTRIL DAILY NEEDED FOR ALLERGY SYMPTOMS Rx Instructions: SHAKE LIQUID AND USE 1 SPRAY IN EACH NOSTRIL DAILY NEEDED FOR ALLERGY SYMPTOMS celecoxib 50 mg capsule 50 mg PO BID Qty: 60 1RF Vitamin D3 1 tab-cap PO DIRECTED Follow-up/Referrals: Anshu Hummel MD [Primary Care Provider] - 3 Days Time of Disposition: 04:53
[2024-10-13 05:46] VITALS: BP 126/79; PULSE 86; RESP 17; O2SAT 98
--- OUTSIDE RECORDS SUMMARY | 2024-10-14 12:26 | XMS_ITS | Clinical Summary ---
Author Organization [facility] Address [address] [place] [address] Phone Care Team Providers Care Shoe Stock Associate Name Role Phone Lanny Alonzo MD Primary Care Provider +1- [phone] Allergies Active Allergy Reactions Criticality Noted Date [...] 3 Active fluticasone propionate (FLONASE) 50 mcg/spray [place], Suspension nasal inhaler SHAKE LIQUID AND USE [...] STL ABSTRACTION Provider, Abstract 10/05/2024 Results Follow-Up [facility] End[facility] [address] [place] [address] Vikram Christopher MD HEMOGLOBIN A1C, ALT, VITAMIN B12 LEVEL 10/04/2024 9:45 AM MICROFILM MACHINE OPERATOR Office Visit [facility] Endocr[facility] [address] [place] [address] Vikram Christopher MD Type 2 diabetes mellitus without complication, without long-term current use of insulin ([facility]) (Primary Dx); Age-related osteoporosis without current pathological fracture; Vitamin D deficiency; Elevated ALT measurement 10/04/2024 External Device Data STL ABSTRACTION Provider, Abstract 10/04/2024 Orders Only Initial Department [address] [place] [address] Dr KONG: [place] [address] Provider, Historical 09/21/2024 External Device Data STL ABSTRACTION Provider, Abstract 08/31/2024 External Device Data STL ABSTRACTION Provider, Abstract 08/25/2024 External Device Data STL ABSTRACTION Provider, Abstract 08/25/2024 Refill [facility] Endocr[facility] [address] [place] [address] Vikram Christopher MD 08/24/2024 Refill [facility] End[facility] [address] [place] [address] Vikram Christopher MD 08/16/2024 External Device Data [...] Comments Blood Pressure 125/83 10/04/2024 10:00 AM MICROFILM MACHINE OPERATOR Pulse 85 10/04/2024 10:00 AM MICROFILM MACHINE OPERATOR Temperature - - Respiratory Rate - - Oxygen Saturation 94% 10/04/2024 10:00 AM MICROFILM MACHINE OPERATOR Inhaled Oxygen Concentration - - Weight 65.8 kg (145 lb) 10/04/2024 10:00 AM MICROFILM MACHINE OPERATOR Height 157.5 cm (5' 2 ) 10/04/2024 10:00 AM MICROFILM MACHINE OPERATOR Body Mass Index 26.52 10/04/2024 10:00 AM MICROFILM MACHINE OPERATOR Plan of Treatment Upcoming Encounters Date Type Department Care Team (Late st Contact Info) Description 04/27/2025 9:45 AM CDT Office Visit [facility] Endocrinology [address] [place] [address] Vikram Christopher MD [address] [place] [address] Health Maintenance Due Date Last [...] B12 LEVEL Routine 10/04/2024 11: 01 AM MICROFILM MACHINE OPERATOR ALT Routine 10/04/2024 11:01 AM MICROFILM MACHINE OPERATOR HEMOGLOBIN A1C Routine 10/04/2024 11:01 AM MICROFILM MACHINE OPERATOR MICROALBUMIN/CREATI NINE RATIO, RANDOM UR Routine 03/10/2024 10:33 AM CDT LIPID PANEL Routine 03/10/2024 10:33 AM CDT Type 2 diabetes mellitus with hypoglycemia without coma, without long-term current use of insulin ([facility]) XR DEXA BONE DENSITY AXIAL 1 OR MORE SITES Routine 07/10/2023 10:33 AM MICROFILM MACHINE OPERATOR Age-related osteoporosis without current pathological fracture HM DIABETES EYE EXAM Routine 04/22/2021 from Last 3 Months or Most Recently Relevant to Health Maintenance Results * ALT (10/04/2024 11:01 AM MICROFILM MACHINE OPERATOR) ALT 17 6 - 29 U/L [facility] Comment: Test Performed at: [facility] [address] [place] [address] Za Díaz MD 10/04/2024 11:0 1 AM MICROFILM MACHINE OPERATOR 10/04/2024 11:03 AM MICROFILM MACHINE OPERATOR Vikram Christopher MD CHEMISTRY ORDERABLES Final Result [facility] [phone] [facility] [address] [address] * (ABNORMAL) HEMOGLOBIN A1C (10/04/2024 11:01 AM MICROFILM MACHINE OPERATOR) Pathologist [facility] HEMOGLOBIN A1C 5.8(H) <5.7 % of total Hgb [facility] Comment: For someone without known diabetes, [...] children. ESTIMATED AVERAGE GLUCOSE (MG/DL) 120 mg/dL [facility] ESTIMATED AVERAGE GLUCOSE (MMOL/L) 6.6 mmol/L [facility] Comment: Test Performed at: [facility] [place] [address] [place] [address] Za Díaz 10/04/2024 11:0 1 AM MICROFILM MACHINE OPERATOR 10/04/2024 11:03 AM MICROFILM MACHINE OPERATOR Vikram Christopher MD CHEMISTRY ORDERABLES Final Result [facility] [phone] [facility] [address] [place] [address] * (ABNORMAL) VITAMIN B12 LEVEL (10/04/2024 11:01 AM MICROFILM MACHINE OPERATOR) Pathologist [facility] VITAMIN B12 1674(H) 200 - 1100 pg/mL [facility] Comment: Test Performed at: [facility] [address] [address] Za Díaz MD 10/04/2024 11:0 1 AM MICROFILM MACHINE OPERATOR 10/04/2024 11:03 AM MICROFILM MACHINE OPERATOR Vikram Christopher MD CHEMISTRY ORDERABLES Final Result Performing Organization Address [facility]/ZIP Co de Phone Number [facility] [phone] [facility] [address] [place] [address] * MICROALBUMIN/CREATININE RATIO, RANDOM UR (03/10/2024 10:33 [...] within a diagnostic category. Test Performed at: [facility] [address] Za Díaz MD 03/10/2024 10:3 3 AM CDT 03/10/2024 10:37 AM CDT Vikram Christopher MD URINE ORDERABLES Katherine l Result Performing Organization Address [facility] Co de Phone Number [facility] [phone] [facility] [address] [place] [address] * LIPID PANEL (03/10/2024 10:33 AM CDT) [...] LDL-C. Rio SS et al. TOSHA. 2013;310(19): 5904-8447 (http://education.Etology.com/faq/XPX592) CHOL/HDL RATIO 2.6 <5.0 (calc) [facility] NON-HDL CHOLESTEROL 98 <130 mg/dL (calc) [facility] Comment: For patients with diabetes plus 1 major ASCVD risk factor, treating to a non-HDL-C goal of <100 mg/dL (LDL-C of <70 mg/dL) is considered a therapeutic option. Test Performed at: [facility] [address] [place] [address] Za Díaz MD Blood 03/10/2024 10:3 3 AM CDT 03/10/2024 10:37 AM CDT Vikram Christopher MD CHEMISTRY ORDERABLES Final Result [facility] [phone] [facility] [address] [facility] [place] [address] * XR DEXA BONE DENSITY AXIAL 1 OR MORE SITES (07/10/2023 10:33 AM MICROFILM MACHINE OPERATOR) Anatomical Region Laterality Modality Digital Radiogra phy 07/10/2023 10:3 4 AM MICROFILM MACHINE OPERATOR Impressions 07/10/2023 3:16 PM MICROFILM MACHINE OPERATOR IMPRESSION: This is a summary page. Please refer to the complete detailed report found in the Imaging Section of the [facility] EMR, including absolute bone mineral density [...] years thereafter DICTATION LOCATION: Location 1 - [facility] 07/10/2023 3:16 PM MICROFILM MACHINE OPERATOR EXAMINATION: BONE DENSITY STUDY (DXA) DATE: 07/10/2023 10:33 AM HISTORY: See Diagnosis Age-related osteoporosis without current pathological fracture PROCEDURE: Planar images of the lumbar spine and/or hip(s) using a [employer]opia DEXA scanner for bone mineral density determination [...] the lumbar spine and/or hip(s) using a [employer]opia DEXA scanner for bone mineral density determination (BMD). Prior bone density: 05/21/2021 FINDINGS: Lumbar Spine (L1-L2): T-Score: -3.8 Left Femoral Neck: T-Score: -2.4 Right Femoral Neck: T-Score: -2.9 IMPRESSION: This is a summary page. Please refer to the complete detailed report found in the Imaging Section of the [facility] EMR, including absolute bone mineral density [...] years thereafter DICTATION LOCATION: Location 1 - [facility] Vikram Christopher MD DIAGNOSTIC IMAGING OR DERABLES Final Result * DIABETES EYE EXAM (04/22/2021) Abstract Provider HEALTH MAINTENANCE Edited Resu lt - Final [facility] from Last 3 Months or Most Recently Relevant to Health Maintenance Insurance [facility] [id number] [address] [facility] [place] Care Teams Shoe Stock Associate Relationship Specialty Start Date End Date Lanny Alonzo MD PCP - General Family Practice 11/24/18
--- OUTSIDE RECORDS SUMMARY | 2024-10-14 12:26 | XMS_ITS | Encounter Summary ---
Author Organization [facility] Address [address] [place] [address] Care Team Providers Care Shipping Support Clerk Name Role Phone Lanny Alonzo MD Primary Care Provider +1- [phone] Encounter Details Date Type Department Care Team (Late Contact Info) Description 10/05/2024 Results Follow-Up [facility] Endocrinology [address] [place] [address] Vikram Christopher MD [address] [place] [address] [place] [address] HEMOGLOBIN A1C, ALT, VITAMIN B12 LEVEL [...] Description 04/27/2025 9:45 AM CDT Office Visit [facility] Endocrinology [address] [place] [address] Vikram Christopher MD [address] [place] [address] documented as of this encounter Visit Diagnoses Not on filedocumented in this encounter Care Teams Shipping Support Clerk Relationship Specialty Start Date End Date Lanny Alonzo MD PCP - General Family Practice 11/24/18 documented as of this encounter
--- OUTSIDE RECORDS SUMMARY | 2024-10-14 12:26 | XMS_ITS | Patient Health Summary ---
Author Organization [facility] Address [address] [place] [address] Care Team Providers Care Volleyball Commentator Name Role Phone Lanny Alonzo MD Primary Care Provider + Note from [facility],non-owned Affiliates and Associated Physician Practices is amultiple site organization consisting of ambulatory clinics and hospital sitesin [place], [place], [place] and [place]. This disclosure is being madepursuant to the Care Everywhere program and may not contain all information available regarding this patient. Last updated 18.[facility] Allergies * Augmentin(Diarrhea) Medications Be aware that [...] 27.62 05/21/2018 10:02 AM CDT Care Teams Volleyball Commentator Relationship Specialty Start Date End Date Lanny Alonzo MD [address] [place] [address] PCP - General 05/31/18
--- OUTSIDE RECORDS SUMMARY | 2024-10-14 12:26 | XMS_ITS | Referral Summary ---
Author Organization [facility] Address [address] [place] [address] Care Team Providers Care Boiling House Hand Name Role Phone Lanny Alonzo MD Primary Care Provider Social History Tobacco Use Types Packs/Day Years Used Date Smoking Tobacco: Never Assessed Personal Safety Answer Date Recorded Getting School Help Needed Not on file 10/17 Comments Unknown Sex and Gender Information Value Date Recorded Sex Assigned at Not on file Legal Sex Female 3:50 AM SEAL SKINNER Gender Identity Not on file Sexual Orientation Not on file Plan of Treatment Not on [place] [address] [employer] [facility] Care Teams Boiling House Hand Relationship Specialty Start Date End Date Lanny Alonzo MD [address] [facility] [address] [place], [place] [id number] PCP - General Family Medicine 01/06/20
--- OUTSIDE RECORDS SUMMARY | 2024-10-14 12:26 | XMS_ITS | Clinical Summary ---
Author Organization [facility] Address [address] [place] [address] Care Team Providers Care Search Engine Optimization Manager Name Role Phone Lanny Alonzo MD Primary Care Provider + Source Comments [facility],non-owned Affiliates and Associated Physician Practices is amultiple site organization consisting of ambulatory clinics and hospital sitesin [place], [place], [place] and [place]. This disclosure is being madepursuant to the Care Everywhere program and may not contain all information available regarding this patient. Last updated 18.[facility] Allergies Active Allergy Reactions Criticality Noted Date [...] age to complete this topic Care Teams Search Engine Optimization Manager Relationship Specialty Start Date End Date Lanny Alonzo MD [address] [place] [address] PCP - General 05/31/18
--- OUTSIDE RECORDS SUMMARY | 2024-10-14 12:26 | XMS_ITS | Clinical Summary ---
Author Organization [facility] Address [facility] [place] [address] Care Team Providers Care Vehicle Technician Name Role Phone Lanny Alonzo MD Primary Care Provider Social History Tobacco Use Types Packs/Day Years Used Date Smoking Tobacco: Never Assessed Personal Safety Answer Date Recorded Getting School Help Needed Not on file 10/17 Comments Unknown Sex and Gender Information Value Date Recorded Sex Assigned at Not on file Legal Sex Female 3:50 AM BANNER PAINTER Gender Identity Not on file Sexual Orientation Not on file Plan of Treatment Not [place] [address] [employer] [facility] Care Teams Vehicle Technician Relationship Specialty Start Date End Date Lanny Alonzo MD [address] [facility] [address] [place], [place] [id number] PCP - General Family Medicine 01/06/20
--- OUTSIDE RECORDS SUMMARY | 2024-10-14 12:26 | XMS_ITS | Referral Summary ---
Author Organization [facility] Address [address] [place] [address] Care Team Providers Care Helicopter Technician Name Role Phone Lanny Alonzo MD Primary Care Provider + Source Comments [facility],non-owned Affiliates and Associated Physician Practices is amultiple site organization consisting of ambulatory clinics and hospital sitesin [place], [place], [place] and [place]. This disclosure is being madepursuant to the Care Everywhere program and may not contain all information available regarding this patient. Last updated 18.[facility] Allergies Active Allergy Reactions Criticality Noted Date [...] of Treatment Not on file Care Teams Helicopter Technician Relationship Specialty Start Date End Date Lanny Alonzo MD [address] [place] [address] PCP - General 05/31/18
[2024-10-14 13:37] LABS: Basophils Absolute Auto 0.1 K/mm3 (0.0-0.1); Basophils Percent Auto 0.6 % (0.2-1.2); Eosinophils Absolute Auto 0.2 K/mm3 (0-0.3); Eosinophils Percent Auto 2.7 % (0-4.4); Hemoglobin 14.5 g/dL (12.0-15.0); Immature Granulocyte Absolute 0.03 K/mm3 (0.00-0.031); Immature Granulocyte Percent A 0.4 % (0-0.5); Lymphocytes Absolute Auto 1.92 K/mm3 (0.9-3.2); Lymphocytes Percent Auto 24.3 % (18.3-44.2); Mean Corpuscular HGB Conc 31.5 g/dl (32-36); Mean Corpuscular Hemoglobin 29.5 pg (26-34); Mean Corpuscular Volume 93.5 fl (80-100); Mean Platelet Volume 10.8 fl (7.4-10.4); Monocytes Absolute Auto 0.7 K/mm3 (0.1-0.6); Monocytes Percent Auto 8.5 % (2.6-8.5); Neutrophils Percent Auto 63.5 % (45.5-73.1); Platelet Count Result 218 k/mm3 (150-375); Red Blood Count 4.92 M/mm3 (4.2-5.4); Red Cell Distribution Width 12.8 % (11.5-14.5); White Blood Count 7.9 K/mm3 (4.5-10.0)
[2024-10-14 13:51] LABS: Alanine Aminotransferase 28 U/L (6-35); Alkaline Phosphatase 73 U/L (38-126); Anion Gap 7 mmol/L (4-12); Aspartate Amino Transferase 26 U/L (14-36); Bilirubin,Total 0.4 mg/dL (0.2-1.3); Blood Urea Nitrogen 16 mg/dL (7-17); Carbon Dioxide 31 mmol/L (22-30); Chloride 105 mmol/L (98-107); Estimated CRCL calculation 52 ml/min; Estimated Glomerular Filt Rate > 60; Glucose 103 mg/dL (65-110); Potassium 3.8 mmol/L (3.4-5.0); Sodium 143 mmol/L (137-145)
[2024-10-14 14:13] LABS: Erythrocyte Sedimentation Rate 12 mm/hr (0-20)
== END 2024-10-14 12:03 | disposition home or self-care (01) ==
LOC: ANHED 04:55 → ANHIMG 10-14 12:06
PROVIDERS: Emergency Provider Emergency Medicine; PCP Family Medicine; Visit Provider Physician Assistant
DX: R51.9 Headache, unspecified (principal); R07.89 Other chest pain; R21 Rash and other nonspecific skin eruption; R53.83 Other fatigue
CPT/HCPCS: 36415; 70450; 71046; 72040; 80053; 85025; 85652; 96361; 96374; 96375; 99284; J1200; J1885; J2765; J7030

== ENCOUNTER 2025-04-14 07:02 | Outpatient (CLI) | payer MEDICARE, OTHER, SELFPAY ==
--- OUTSIDE RECORDS SUMMARY | 2025-04-14 07:05 | XMS_ITS | Clinical Summary ---
Author Organization [facility] Address [address] [place] [address] Care Team Providers Care Color Receiver Name Role Phone Anshu Hummel MD Primary Care Provider Allergies No known active allergies Encounters Date Type Department Care Team Description 03/29/2025 7:41 AM CDT - 03/29/2025 11:59 PM CDT Hospital Encounter [address] [address] Nonintractable headache, unspecified chronicity pattern, unspecified headache type; Tremor; Unsteadiness on feet; Mild cognitive impairment of uncertain or unknown etiology Discharge Disposition: Discharge to home or self care from Last 3 Months Social History Tobacco Use Types Packs/Day Years Used Date Smoking Tobacco: Never Assessed Comments Unknown Sex and Gender Information Value Date Recorded Sex Assigned at Not on file 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 Gender Identity Not on file Sexual Orientation Not on file Plan of Treatment Health Maintenance Due Date Last Done Comments Breast Cancer Screening-Mammogram 1955 Colon Cancer Screening-Colonoscopy 1955 Depression Screening 1955 Fall Risk Assessment 1955 Hepatitis C Screening 1955 DTaP/Tdap/Td Vaccine (1 - Tdap) 1968 Hepatitis B Screening 1975 Pneumococcal vaccine 65+ (1 of 2 - PCV) 1976 Zoster Vaccine (1 of 2) 2007 Well Visit 65+ 2022 Covid-19 Vaccine (2024-2 6 season) 2025 06/13/2023, 06/13/2021, 10/13/2020, Additional history exists Influenza Vaccine (#1) 2025 Osteoporosis Screening-Bone Density Scan 07/10/2025 07/10/2023, 07/10/2023, 05/21/2021 Procedures Procedure Name Priority Date/Time Associated Diagnosis Comments MRI BRAIN W WO CONTRAST Schedule Routine, Read Routine (OP Routine) 03/29/2025 8:58 AM CDT Nonintractable headache, unspecified chronicity pattern, unspecified headache type Tremor Unsteadiness on feet Mild cognitive impairment of uncertain or unknown etiology from Last 3 Months Results * MRI Brain W WO Contrast (03/29/2025 8:58 AM CDT) Anatomical Region Laterality Modality Head and Neck N/A Magnetic Resonan ce 03/29/2025 11:1 0 AM CDT Narrative 03/29/2025 11:22 AM CDT EXAM DESCRIPTION: MRI BRAIN W WO CONTRAST REASON FOR STUDY: r51.9, r25.1, r26.81, g31.84 Tremors in hands that started in August 2024, worsening. TECHNIQUE: Multiplanar imaging includes noncontrast T1, T2, FLAIR, diffusion with ADC map and post contrast T1 sequences. Additional sequence(s) sensitive to blood products. Images stored on PACS. CONTRAST TYPE/DOSE: 12mL of GADOTERATE MEGLUMINE 0.5 MMOL/ML INTRAVENOUS SOLUTION (SO) injected via intravenous COMPARISON: None available. FINDINGS: Some of the sequences are degraded by motion related artifact. There is no diffusion restriction to suggest acute/recent infarction. No parenchymal susceptibility signal to indicate blood degradation products. There is mild diffuse parenchymal volume loss. No hydrocephalus. The basilar cisterns are maintained. Chronic lacunar infarctions in the right soni radiata. The bilateral cerebral white matter, basal ganglia and midbrain well-circumscribed tiny T2 hyperintensities would be most compatible with prominent perivascular spaces, an occasional additional chronic lacunar infarction can also have similar imaging appearance. The subcortical and periventricular white matter T2/FLAIR hyperintense signal in the bilateral cerebral hemispheres is nonspecific but compatible with chronic microvascular ischemic type change in a patient of this age. On postcontrast imaging, there is no convincing enhancing parenchymal mass. The bilateral globes are symmetric. Mucosal thickening in the bilateral ethmoid air cells and left maxillary sinus floor. Trace T2 hyperintensities in the right mastoid air cells. The left parietal calvarial intrinsic T1 hyperintense signal in keeping with an intraosseous hemangioma. IMPRESSION: 1. No acute/recent infarction. 2. Chronic infarctions, chronic microvascular ischemic type white-matter changes and other findings as above. 3. Previous imaging studies are not available for comparison. THIS IS AN ELECTRONICALLY VERIFIED FINAL REPORT 03/29/2025 11:22 AM - Electronically signed by Paul Zepeda D.O. AP: AP Report ID: [id number] Reading Location: [id number] Procedure Note Paul Zepeda, DO - 03/29/2025 EXAM DESCRIPTION: MRI BRAIN W WO CONTRAST REASON FOR STUDY: r51.9, r25.1, r26.81, g31.84 Tremors in hands that started in August 2024, worsening. TECHNIQUE: Multiplanar imaging includes noncontrast T1, T2, FLAIR,diffusion with ADC map and post contrast T1 sequences. Additional sequence(s)sensitive to blood products. Images stored on PACS. CONTRAST TYPE/DOSE: 12mL of GADOTERATE MEGLUMINE 0.5 MMOL/ML INTRAVENOUS SOLUTION (SO) injected via intravenous COMPARISON: None available. FINDINGS: Some of the sequences are degraded by motion related artifact. There is no diffusion restriction to suggest acute/recent infarction. No parenchymal susceptibility signal to indicate blood degradationproducts. There is mild diffuse parenchymal volume loss. No hydrocephalus. Thebasilar cisterns are maintained. Chronic lacunar infarctions in the right soni radiata. The bilateral cerebral white matter, basal ganglia and midbrain well-circumscribed tinyT2 hyperintensities would be most compatible with prominent perivascularspaces, an occasional additional chronic lacunar infarction can also have similar imaging appearance. The subcortical and periventricular white matterT2/FLAIR hyperintense signal in the bilateral cerebral hemispheres is nonspecificbut compatible with chronic microvascular ischemic type change in a patient of this age. On postcontrast imaging, there is no convincing enhancing parenchymalmass. The bilateral globes are symmetric. Mucosal thickening in the bilateral ethmoid air cells and left maxillary sinus floor. Trace [id number] in the right mastoid air cells. The left parietal calvarial intrinsic T1 hyperintense signal in keeping with an intraosseous hemangioma. IMPRESSION: 1. No acute/recent infarction. 2. Chronic infarctions, chronic microvascular ischemic type white-matter changes and other findings as above. 3. Previous imaging studies are not available for comparison. THIS IS AN ELECTRONICALLY VERIFIED FINAL REPORT 03/29/2025 11:22 AM - Electronically signed by Paul Zepeda D.O. AP: CARLOTA Report ID: [id number] Reading Location: [id number] us Provider Transcribed Order IMG MRI PROCEDURES Fi nal Result from Last 3 Months Insurance [employer] [facility] [id number] [facility] MEDICARE ADVANTAGE Care Teams Color Receiver Relationship Specialty Start Date End Date Anshu Hummel MD [address] [facility] [address] [place] [address] PCP - General Family Medicine 10/17/24
--- OUTSIDE RECORDS SUMMARY | 2025-04-14 07:06 | XMS_ITS | Clinical Summary ---
Author Organization [facility] Address [address] [place] [address] Care Team Providers Care Golf Ball Molder Name Role Phone Lanny Alonzo MD Primary Care Provider + Source Comments [facility],non-owned Affiliates and Associated Physician Practices is amultiple site organization consisting of ambulatory clinics and hospital sitesin [place], [place], [place] and [place]. This disclosure is being madepursuant to the Care Everywhere program and may not contain all information available regarding this patient. Last updated 18.[facility] Allergies Active Allergy Reactions Criticality Noted Date Comments Augmentin Diarrhea 05/21/2018 Medications * Be aware that medications may not be up to date on this document. Alwaysverify current medications with the patient. No known medications Active Problems No known active problems Family History Medical History Relation Name Comments CVA Father CAD (Coronary Artery Disease) Mother Relation Name Status Comments Father Mother Social History Tobacco Use Types Packs/Day Years Used Date Smoking Tobacco: Never Smokeless Tobacco: Never Comments:no smoking househol d Comments Unknown Sex and Gender Information Value Date Recorded Sex Assigned at Not on file Legal Sex Female 9:38 AM CDT Gender Identity Not on file Sexual [...] 10:02 AM CDT Height 157.5 cm (5' 2) 05/21/2018 10:02 AM CDT Body Mass Index [...] of 2) 2007 SCREENING FOR DIABETES 05/21/2018 DEPRESSION SCREENING 08/03/2024 COVID-19 VACCINE (1 - 2023-2 5 season) 2025 INFLUENZA VACCINE (#1) 2025 Respiratory Syncytial Virus (RSV) Vaccine Pt: or [...] on patient's age to complete this topic [place] [employer] [facility] [place]: [facility] [id number] [place] [address] [employer] [facility] [place]: [facility] [id number] [place] [address] [employer] Care Teams Golf Ball Molder Relationship Specialty Start Date End Date Lanny Alonzo MD [address] [place] [address] PCP - General 05/31/18
--- OUTSIDE RECORDS SUMMARY | 2025-04-14 07:06 | XMS_ITS | Clinical Summary ---
Author Organization [facility] Address [address] [place] [address] Phone Care Team Providers Care Staffing And Scheduling Coordinator Name Role Phone Lanny Alonzo MD Primary Care Provider [phone]- [phone] Allergies Active Allergy Reactions Criticality Noted Date Comments Metformin Diarrhea Medium 04/18/2021 Medications montelukast sodium (SINGULAIR ORAL) Take by mouth. Activ e calcium-choleca lciferol, D3, (CALTRATE 600+D3) 600 mg-20 mcg (800 unit) Tablet, Chewable tablet Take 1 Tablet by mouth 2 times daily with meals. 2 Active cholecalciferol , Vitamin D3, 50 mcg (2,000 unit) Tablet Take 1 Tablet (2,000 Units) by mouth daily. 3 Active fluticasone propionate (FLONASE) 50 mcg/spray [place], Suspension nasal inhaler SHAKE LIQUID AND USE 1 SPRAY IN EACH NOSTRIL DAILY NEEDED FOR ALLERGY SYMPTOMS 4 Active Mounjaro 5 mg/0.5 mL Pen Injector Inject 0.5 mL (5 mg) by subcutaneous injection every 7 days. 2 mL 5 5 Active FreeStyle Rosa 3 Plus Sensor Device TEST BLOOD GLUCOSE DIRECTED. CHANGE EVERY 2 WEEKS 6 Each 3 5 Active Active Problems Problem Noted Date Diagnosed Date [...] Encounters Date Type Department Care Team Description 02/15/2025 External Device Data ST[facility] ABSTRACTION Provider, Abstract 02/15/2025 External Device Data [place] ABSTRACTION Provider, Abstract 01/17/2025 External Device Data [place] ABSTRACTION Provider, Abstract [...] Comments Blood Pressure 125/83 10/04/2024 10:00 AM PHOTOLITHOGRAPHIC STRIPPER Pulse 85 10/04/2024 10:00 AM PHOTOLITHOGRAPHIC STRIPPER Temperature - - Respiratory Rate - - Oxygen Saturation 94% 10/04/2024 10:00 AM PHOTOLITHOGRAPHIC STRIPPER Inhaled Oxygen Concentration - - Weight 65.8 kg (145 lb) 10/04/2024 10:00 AM PHOTOLITHOGRAPHIC STRIPPER Height 157.5 cm (5' 2) 10/04/2024 10:00 AM PHOTOLITHOGRAPHIC STRIPPER Body Mass Index 26.52 10/04/2024 10:00 AM PHOTOLITHOGRAPHIC STRIPPER Plan of Treatment Upcoming Encounters Date Type Department Care Team (Late st Contact Info) Description 04/27/2025 9:45 AM CDT Office Visit [facility] Endocr[facility] [address] [place] [address] Vikram Christopher MD [address] [place] [address] Health Maintenance Due Date Last [...] RETINAL EXAM 04/22/2022 04/22/2021 INFLUENZA VACCINE (#1) 2025 DIABETES MICROALBUMIN ANNUAL SCREEN 03/10/2025 03/10/2024, 03/05/2024, 01/19/2023, Additional history exists LDL CHOLESTEROL ANNUAL 03/10/2025 , 08/05/2023, 07/19/2022, Additional history exists DIABETES HBA1C Q 6 MONTHS 04/06/20252024, 03/10/2024, 03/05/2024, Additional history exists DIABETES ANNUAL FOOT EXAM 10/04/20252024, 03/10/2024, 01/06/2023, Additional history exists OSTEOPOROSIS SCREENING 07/10/2028 07/10/2023, 2020 RSV VACCINE (60+ or ) (1 - 1-dose 75+ series) 2032 Procedures Procedure Name Priority Date/Time Associated Diagnosis Comments HEMOGLOBIN A1C Routine 10/04/2024 11:01 AM PHOTOLITHOGRAPHIC STRIPPER MICROALBUMIN/CREATI NINE RATIO, RANDOM UR Routine 03/10/2024 10:33 AM CDT LIPID PANEL Routine 03/10/2024 10:33 AM CDT Type 2 diabetes mellitus with hypoglycemia without coma, without long-term current use of insulin ([facility]) XR DEXA BONE DENSITY AXIAL 1 OR MORE SITES Routine 07/10/2023 10:33 AM PHOTOLITHOGRAPHIC STRIPPER Age-related osteoporosis without current pathological fracture HM DIABETES EYE EXAM Routine 04/22/2021 from Last 3 Months or Most Recently Relevant to Health Maintenance Results * (ABNORMAL) HEMOGLOBIN A1C (10/04/2024 11:01 AM PHOTOLITHOGRAPHIC STRIPPER) HEMOGLOBIN A1C 5.8(H) <5.7 % of total Hgb [facility] Comment: For someone without known diabetes, [...] children. ESTIMATED AVERAGE GLUCOSE (MG/DL) 120 mg/dL [facility] ESTIMATED AVERAGE GLUCOSE (MMOL/L) 6.6 mmol/L [facility] Comment: Test Performed at: [facility] [address] [place] [address] Za Díaz 10/04/2024 11:0 1 AM PHOTOLITHOGRAPHIC STRIPPER 10/04/2024 11:03 AM PHOTOLITHOGRAPHIC STRIPPER Vikram Christopher MD CHEMISTRY ORDERABLES Final Result [facility] [phone] [facility] [address] [place] [address] * MICROALBUMIN/CREATININE RATIO, RANDOM UR (03/10/2024 10:33 AM CDT) Creatinine, Urine 99 20 - 275 mg/dL [facility] MICROALBUMIN, URINE 0.4 See Note: [...] within a diagnostic category. Test Performed at: [facility] [place] [address] [address] [address] Za Díaz MD 03/10/2024 10:3 3 AM CDT 03/10/2024 10:37 AM CDT Vikram Christopher MD URINE ORDERABLES Katherine l Result Performing Organization Address City/[facility]/ZIP Co de Phone Number [facility] [phone] [facility] [address] [address] [address] * LIPID PANEL (03/10/2024 10:33 AM CDT) CHOLESTEROL 158 <200 mg/dL [facility] HDL 60 > OR = 50 mg/dL [facility] TRIGLYCERIDE 66 <150 mg/dL [facility] LDL CALCULATED 83 mg/dL (calc) [facility] Comment: Reference range: <100 Desirable range <100 mg/dL for primary prevention; <70 mg/dL for patients with CHD or diabetic patients with > or = 2 CHD risk factors. LDL-C is now calculated using the Concepcion calculation, which is a validated novel method providing better accuracy than the Friedewald equation in the estimation of LDL-C. Rio SS et al. TOSHA. 2013;310(19): 1316-4736 (http://education.BookingBug/faq/PTK211) CHOL/HDL RATIO 2.6 <5.0 (calc) [facility] NON-HDL CHOLESTEROL 98 <130 mg/dL (calc) [facility] Comment: For patients with diabetes plus 1 major ASCVD risk factor, treating to a non-HDL-C goal of <100 mg/dL (LDL-C of <70 mg/dL) is considered a therapeutic option. Test Performed at: [facility] [address] [facility] [address] Za Díaz MD Blood 03/10/2024 10:3 3 AM CDT 03/10/2024 10:37 AM CDT Vikram Christopher MD CHEMISTRY ORDERABLES Final Result [facility] [phone] [facility] [address] [place] [address] * XR DEXA BONE DENSITY AXIAL 1 OR MORE SITES (07/10/2023 10:33 AM PHOTOLITHOGRAPHIC STRIPPER) Anatomical Region Laterality Modality Digital Radiogra phy 07/10/2023 10:3 4 AM PHOTOLITHOGRAPHIC STRIPPER Impressions 07/10/2023 3:16 PM PHOTOLITHOGRAPHIC STRIPPER IMPRESSION: This is a summary page. Please refer to the complete detailed report found in the Imaging Section of the [facility] EMR, including absolute bone mineral density [...] years thereafter DICTATION LOCATION: Location 1 - [facility] 07/10/2023 3:16 PM PHOTOLITHOGRAPHIC STRIPPER EXAMINATION: BONE DENSITY STUDY (DXA) DATE: 07/10/2023 10:33 AM HISTORY: See Diagnosis Age-related osteoporosis without current pathological fracture PROCEDURE: Planar images of the lumbar spine and/or hip(s) using a LUNAR DEXA scanner for bone mineral density determination [...] the lumbar spine and/or hip(s) using a LUNAR DEXA scanner for bone mineral density determination (BMD). Prior bone density: 05/21/2021 FINDINGS: Lumbar Spine (L1-L2): T-Score: -3.8 Left Femoral Neck: T-Score: -2.4 Right Femoral Neck: T-Score: -2.9 IMPRESSION: This is a summary page. Please refer to the complete detailed report found in the Imaging Section of the [facility] EMR, including absolute bone mineral density values. Osteoporotic BMD. Comments: Bone mineral density measured in the spine may be unreliable due to the impact of sclerotic degenerative changes. Statistical change: There is a statistically significant decrease in bone mineral density at the L1-L2 measurement site(s), 5.1% lower than in 202. A statistically significant change is defined as [...] 2 years thereafter DICTATION LOCATION: Location 1 [facility] Vikram Christopher MD DIAGNOSTIC IMAGING OR DERABLES Final Result * DIABETES EYE EXAM (04/22/2021) Abstract Provider HEALTH MAINTENANCE Edited Resu lt - Final [facility] from Last 3 Months or Most Recently Relevant to Health Maintenance Insurance [facility] [id number] Member Subscriber Plan / Payer (Ef fective 2023-Present) Name:Lilliam Dougherty Relation to Subscriber:Self Name:Lilliam Dougherty Payer ID:[id number] (NAIC) Type:O Address: [address] BENEFIT PLANS Care Teams Staffing And Scheduling Coordinator Relationship Specialty Start Date End Date Lanny Alonzo MD PCP - General Family Practice 11/24/18
[2025-04-14 08:24] LABS: Cholesterol 167 mg/dL (0-200); HDL Direct 61 mg/dL; Triglycerides 72 mg/dL (<150)
[2025-04-22 03:07] LABS: A -- Beta-amyloid 42/40 Ratio 0.099 (>0.102); Beta-amyloid 40 141.78 pg/mL (.); Beta-amyloid 42 13.99 pg/mL (.); N -- NfL, Plasma 3.15 pg/mL (0.00-3.65); T -- p-tau181 2.63 pg/mL (0.00-0.97)
== END 2025-04-14 07:03 | disposition home or self-care (01) ==
PROVIDERS: PCP Family Medicine; Visit Provider Psychiatry & Neurology Neurology
DX: G20.A1 Parkinson's disease without dyskinesia, without mention of fluctuations (principal); I63.9 Cerebral infarction, unspecified; R51.9 Headache, unspecified; E11.65 Type 2 diabetes mellitus with hyperglycemia; R26.81 Unsteadiness on feet
CPT/HCPCS: 36415; 80061; 83090; 83520

== ENCOUNTER 2025-06-02 09:23 | Outpatient (CLI) | payer MEDICARE, OTHER, SELFPAY ==
--- NOTE | ~2025-06-02 | DEXA_ITS ---
Bone Density Report Name: HARDY CARVAJAL Age: 69 Sex: Female Ethnicity: White Date of : 1955 Indication: postmenopausal; screening for osteoporosis; parental hip fracture; history of glucocorticoids; prior fracture; asthma or emphysema; hysterectomy; secondary osteoporosis; Referring Provider: SASHA KABA Study: Bone densitometry was performed. Exam Date: June 02, 2025 Accession number: [id number] Bone Density: Region BMD T-score Z-score Classification AP Spine(L1-L4) 0.625 -3.8 -1.9 Osteoporosis Femoral Neck (Left) 0.476 -3.4 -1.7 Osteoporosis Total Hip (Left) 0.681 -2.1 -0.7 Osteopenia Femoral Neck (Right) 0.449 -3.6 -1.9 Osteoporosis Total Hip (Right) 0.725 -1.8 -0.4 Osteopenia Total Hip Mean 0.703 -2.0 -0.6 Osteopenia World Health Organization criteria for BMD impression classify patients as: Normal (T-score at or above -1.0), Osteopenia (T-score between -1.0 and -2.5), or Osteoporosis (T-score at or below -2.5). 10-year Fracture Risk: FRAX not reported because: Some T-score for Spine Total or Hip Total or Femoral Neck at or below -2.5 Clinical Information Provided by Patient: Has had a low trauma fracture Parent has had a hip fracture Has taken Glucocorticoids Has secondary osteoporosis Is being treated for osteoporosis Has used the following medications: HRT (i.e. 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 The patient has risk factors, including: parental hip fracture, previous fracture, history of glucocorticoid therapy. Discussion: It is important to ask patients whether they are taking their medications and to encourage continued and appropriate compliance with their osteoporosis therapies to reduce fracture risk. It is also important to review their risk factors and encourage appropriate calcium and vitamin D intakes, exercise, fall prevention and other lifestyle measures. Follow-Up: Consider a repeat BMD and Vertebral Fracture Assessment (VFA) exam in 2 years or sooner if medically necessary, to reassess this patient's status. Reported by: JOSE on 06/02/2025 9:43:00 AM. Reviewed, dictated and finalized at location A.
== END 2025-06-02 09:24 | disposition home or self-care (01) ==
LOC: MICIMG 09:24
PROVIDERS: PCP Family Medicine
DX: M81.0 Age-related osteoporosis without current pathological fracture (principal); M85.89 Other specified disorders of bone density and structure, multiple sites; Z78.0 Asymptomatic menopausal state
CPT/HCPCS: 77080